=== PATIENT | male | born 1940 | race Caucasian/White ===

== ENCOUNTER 2016-12-15 11:20 | Observation (INO) | payer OTHER ==
--- NOTE | 2016-12-15 11:34 | PDOC ---
History of Present Illness <Zenon Grant - Last Filed: 12/15/16 14:03> - General History Source: Patient, Family Exam Limitations: No Limitations - History of Present Illness Initial Comments: 12/15/16 12:04 The patient is a 76 year old male with a significant past medical history of hypertension, seizures, worsening dementia, brought by ambulance to the Emergency Department s/p syncopal episode just prior to arrival. The patients reports that they were walking to an appoint with his PCP when the patient started to feel weak and rested on a wall. The patient then became pale and passed out, his family catching him and bringing him to the ground. The patient s denies head trauma. The patients is unsure how long the patient was unresponsive, but reports that the patient awoke sleepy but near baseline. The patients denies a history of heart attack or stroke in the patient. The patients admits that his last seizure was about 2 years ago, and denies any seizure activity or incontinence with todays syncopal episode. The patient admits that he is tired, but has no other complaints at this time. As per past records, the patient had A-fib in 2003. The patient denies headache, dizziness, and visual changes. Patient denies nausea, vomiting, and diarrhea. Patient denies chest pain, palpitations, and shortness of breath. Patient denies numbness or tingling to the extremities. Neuro: Dr. Leonardo PCP: Dr. Jaimee Gilmore <Siria Saucedo - Last Filed: 12/15/16 14:09> - General Chief Complaint: Syncope/Near Syncope Stated Complaint: Syncope/Near Syncope Time Seen by Provider: 12/15/16 11:32 Past History - Past Medical History Cardiac Disorders: Yes HTN: Yes Seizures: Yes - Psycho/Social/Smoking Cessation Hx Anxiety: No Suicidal Ideation: No Smoking Status: No Smoking History: Former smoker Have you smoked in the past 12 months: No Number of Cigarettes Smoked Daily: 0 Hx Alcohol Use: No Drug/Substance Use Hx: No Hx Substance Use Treatment: No <Zenon Grant - Last Filed: 12/15/16 14:03> <Siria Saucedo - Last Filed: 12/15/16 14:09> - Past Medical History Allergies/Adverse Reactions: Allergies Allergy/AdvReac Type Severity Reaction Status Date / Time No Known Allergies Allergy Verified 11/17/13 14:55 Home Medications: Ambulatory Orders Carvedilol [Coreg] 25 mg PO BID 02/15/13 Amlodipine Besylate [Norvasc -] 10 mg PO DAILY #0 tablet 02/20/13 Aspirin [ASA -] 81 mg PO DAILY #0 tab.chew 02/20/13 Hydralazine HCl 50 mg PO DAILY 11/11/13 Levetiracetam [Keppra Xr -] 750 mg PO BID 11/11/13 Multivitamins W-Iron [Multivitamins with Iron] 1 each PO DAILY 11/17/13 Review of Systems - Review of Systems Able to Perform ROS?: No (dementia) HEENTM: No: Nose Congestion, Throat Swelling Respiratory: No: Cough, Shortness of Breath Cardiac (ROS): Yes: Syncope. No: Chest Pain <Zenon Grant - Last Filed: 12/15/16 14:03> - Review of Systems Able to Perform ROS?: Yes <Siria Saucedo - Last Filed: 12/15/16 14:09> *Physical Exam - Vital Signs Last Vital Signs Temp Pulse Resp BP Pulse Ox 98.8 F 70 18 127/67 100 12/15/16 11:41 12/15/16 11:41 12/15/16 11:41 12/15/16 11:41 12/15/16 11:41 - Physical Exam Comments: 12/15/16 12:05 GENERAL: The patient is awake, alert, and fully oriented, in no acute distress. HEAD: Normal with no signs of trauma. EYES: Pupils equal, round and reactive to light, extraocular movements intact, sclera anicteric, conjunctiva clear with no pallor. ENT: Ears normal, nares patent, oropharynx clear without exudates. Moist mucous membranes. NECK: Normal range of motion, supple without lymphadenopathy, JVD, or masses. LUNGS: Breath sounds equal, clear to auscultation bilaterally. No wheeze/ crackles. HEART: Irregular rhythm, normal rate. 2/6 ejection murmur. ABDOMEN: Soft/nontender/nondistended. BS wnl. No guarding or rebound. No palpable masses. No hepatosplenomegaly. EXTREMITIES: Normal range of motion, no edema. No clubbing or cyanosis. No cords, erythema, or tenderness. NEURO: Mental status: The patient is alert and oriented x3. Cranial nerves: Cranial nerves II through XII are intact Motor: The upper extremities are 5 over 5 in all muscle groups. The lower extremities are 5 over 5 in all muscle groups. No pronator drift. Sensation: Sensation is intact to light touch throughout. Cerebellar: Ntkuvw-draokl-dval is normal in both upper extremities. Heel-knee- jean is normal in both lower extremities. Reflexes: 2+ and symmetric in the upper and lower extremities. PSYCH: Normal mood, normal affect. SKIN: Warm, Dry, normal turgor, no rashes or lesions noted. <Siria Saucedo - Last Filed: 12/15/16 14:09> Heart Score/ECG Review #1 ECG reviewed & interpreted by me at: 11:42 12/15/16 11:52 afib at 74. qtc 455. septal Q waves with sub-mm RIGO unchanged from prior ( previously seen on 11/11/13, but not 11/17/13), no acute ST changes <Zenon Grant - Last Filed: 12/15/16 14:03> ED Treatment Course - LABORATORY CBC & Chemistry Diagram: 12/15/16 12:35 12/15/16 12:35 <Zenon Grant - Last Filed: 12/15/16 14:03> - LABORATORY CBC & Chemistry Diagram: 12/15/16 12:35 12/15/16 12:35 - RADIOLOGY Radiograph Interpretation: 12/15/16 13:45 Chest XRay As reviewed by Dr. Dsehaun Martinez IMPRESSION: No acute pathology. No significant change since prior study. <Siria Saucedo - Last Filed: 12/15/16 14:09> Medical Decision Making - Medical Decision Making 12/15/16 11:59 A portion of this note was documented by scribe services under my direction. I have reviewed the details of the note, within reason, and agree with the documentation with the following case summary and management plan written by me. 76-year-old male with history of hypertension, seizures, dementia presents with syncopal episode while standing outside today. No seizure-like activity, no trauma, now returned to baseline mental status. No recent infectious or dehydration complaints, denied any headache or chest pain. Vital signs normal. Atraumatic. Irregular with normal rate Neurologically intact 76-year-old male with syncope, less consistent with seizure. Question orthostatic/vasovagal on a hot day outside, question arrhythmia. Given age and underlying heart disease, will need monitoring. Labs, urinalysis EKG, chest x-ray Admission 12/15/16 13:33 Labs are within normal limits, no leukocytosis and normal troponin. Chest x-ray normal. Patient returned to baseline, well-appearing. Question postictal previously, but still more consistent with syncope. Will proceed with telemetry admission 12/15/16 14:03 Accepted for obs tele by Dr. Rashida Cavazos. <Zenon Grant - Last Filed: 12/15/16 14:03> - Medical Decision Making 12/15/16 14:08 Dr. Cavazos was called at her office at 1:33. Awaiting call back. Dr. Cavazos was called on her cell phone at 2:00, and spoke to Dr. Grant about the patient's care. <Siria Saucedo - Last Filed: 12/15/16 14:09> *DC/Admit/Observation/Transfer - Discharge Dispostion Admit: Yes <Zenon Grant - Last Filed: 12/15/16 14:03> - Attestations Scribe Attestion: 12/15/16 12:07 Documentation prepared by Siria Saucedo, acting as medical office assistant instructor for Zenon Grant MD. <Sirai Saucedo - Last Filed: 12/15/16 14:09> Diagnosis at time of Disposition: Seizure disorder, Syncope and collapse - Discharge Dispostion Condition at time of disposition: Fair - Referrals Referrals: Jaimee Cavazos MD [Primary Care Provider] -
[2016-12-15] MEDS ORDERED: SODIUM CHLORIDE 500 ML IV STA (11:35)
[2016-12-15 11:55] VITALS: BMI 22.3
[2016-12-15 13:16] LABS: ALBUMIN 3.6 g/dl (3.4-5.0); ANION GAP 14 (8-16); BILIRUBIN,TOTAL 0.7 mg/dL (0.2-1.0); CALCIUM 8.7 mg/dL (8.5-10.1); CO2 24 mmol/L (21-32); COCKROFT - GAULT 52.91; CREATININE 1.2 mg/dL (0.7-1.3); GLUCOSE,RANDOM 106 mg/dL (74-106); MAGNESIUM 2.1 mg/dL (1.8-2.4); SGOT/AST 26 U/L (15-37); SGPT/ALT 26 U/L (12-78); TOT PROT 6.9 g/dl (6.4-8.2)
[2016-12-15 13:19] LABS: ALK PHOS 92 U/L (45-117); TROPONIN I < 0.02 ng/ml (0.00-0.05)
[2016-12-15 13:20] LABS: URINE APPEARANCE CLEAR; URINE BILIRUBIN NEGATIVE (NEGATIVE); URINE BLOOD NEGATIVE (NEGATIVE); URINE COLOR AMBER; URINE GLUCOSE (UA) NEGATIVE (NEGATIVE); URINE KETONE NEGATIVE (NEGATIVE); URINE NITRITE NEGATIVE (NEGATIVE); URINE UROBILINOGEN 2.0 E.U/dl E.U./dl (0.2-1.0)
[2016-12-15 13:24] LABS: URINE LEUK ESTERASE TRACE (NEGATIVE); URINE PROTEIN 1+ (NEGATIVE)
[2016-12-15 13:57] LABS: URINE HYALINE CAST 5 /lpf; URINE MUCUS RARE; URINE RBC 4 /hpf (0-3); URINE WBC 4 /hpf (3-5)
[2016-12-15 14:12] LABS: INR 1.2 (0.82-1.09); PROTHROMBIN TIME (PATIENT) 13.3 SEC (9.98-11.88)
--- NOTE | 2016-12-15 14:42 | EKG ---
Test Reason : Blood Pressure : / mmHG Vent. Rate : 074 BPM Atrial Rate : 066 BPM P-R Int : 000 ms QRS Dur : 130 ms QT Int : 410 ms P-R-T Axes : 000 -61 064 degrees QTc Int : 455 ms ATRIAL FIBRILLATION LEFT AXIS DEVIATION NON-SPECIFIC INTRA-VENTRICULAR CONDUCTION BLOCK CANNOT RULE OUT ANTEROSEPTAL INFARCT , AGE UNDETERMINED ABNORMAL ECG WHEN COMPARED WITH ECG OF 17-NOV-2013 15:16, QRS DURATION HAS INCREASED MINIMAL CRITERIA FOR ANTEROSEPTAL INFARCT ARE NOW PRESENT Confirmed by KRISTAN NICOLE, IZZY ([id number]) on 12/15/2016 2:42:11 PM Referred By: Confirmed By:IZZY RUSHING MD
[2016-12-15 20:32] LABS: TROPONIN I < 0.02 ng/ml (0.00-0.05)
[2016-12-15] MEDS: levETIRAcetam XR 750 MG TAB PO SCH (22:39)
[2016-12-15] MEDS: CARVEDILOL 25 MG TABLET (FP) PO SCH (22:39)
[2016-12-16 06:26] LABS: MCH 31.1 pg (25.7-33.7); MCHC 33.5 g/dl (32.0-35.9); MEAN CELL VOLUME 92.7 fl (80-96); MEAN PLT VOLUME 10.3 fl (7.5-11.1); PLATELET COUNT 143 K/MM3 (134-434); RDW 13.5 % (11.9-15.9)
[2016-12-16 06:55] LABS: TROPONIN I < 0.02 ng/ml (0.00-0.05)
[2016-12-16 07:01] LABS: ALK PHOS 99 U/L (45-117); ANION GAP 7 (8-16); BILIRUBIN,TOTAL 0.7 mg/dL (0.2-1.0); CALCIUM 9.3 mg/dL (8.5-10.1); CO2 30 mmol/L (21-32); COCKROFT - GAULT 70.55; CREATININE 0.9 mg/dL (0.7-1.3); FREE T4 1.06 ng/dl (0.76-1.16); GLUCOSE,RANDOM 92 mg/dL (74-106); SGOT/AST 29 U/L (15-37); SGPT/ALT 29 U/L (12-78); THYROID STIMULATING HORMONE 1.64 uIU/ml (0.358-3.74); TOT PROT 7.5 g/dl (6.4-8.2)
[2016-12-16] MEDS: CARVEDILOL 25 MG TABLET (FP) PO SCH ×3 (09:05→22:24)
[2016-12-16] MEDS: amLODIPine BESYLATE 10 MG TABLET (FP) PO SCH (09:05)
[2016-12-16] MEDS: hydrALAZINE HCL 50 MG TABLET (FP) PO SCH (09:05)
[2016-12-16] MEDS: ASPIRIN 81 MG CHEWABLE TABLETS PO SCH (09:05)
[2016-12-16] MEDS: levETIRAcetam XR 750 MG TAB PO SCH ×3 (09:08→22:30)
--- NOTE | 2016-12-16 11:29 | CON.CARD ---
Cardiology Consult (text) - Consultation Consultation Note: cc: syncope hpi: 76 m hx dementia, htn, hld, afib, seizures here with syncope. Hx from chart as pt has dementia and is confused. Pt offers no complaints. Per charts he was at pmd office yesterday and felt weak and started to lean on wall. He became pale and then collapsed and was caught and brought to floor. Regained conscience and felt well, brought to er for further eval. pmh: per hpi psh: nc social: ex tob fam: unknown ros: unable to obtain 2/2 dementia meds: Home Medications Medication Instructions Recorded Carvedilol [Coreg] 25 mg PO BID 02/15/13 Amlodipine Besylate [Norvasc -] 10 mg PO DAILY #0 tablet 02/20/13 Aspirin [ASA -] 81 mg PO DAILY #0 tab.chew 02/20/13 Hydralazine HCl 50 mg PO DAILY 11/11/13 Levetiracetam [Keppra Xr -] 750 mg PO BID 11/11/13 Multivitamins W-Iron 1 each PO DAILY 11/17/13 [Multivitamins with Iron] Donepezil HCl [Aricept] 10 mg PO DAILY 12/15/16 Galantamine HBr [Razadyne ER] 8 mg PO DAILY 12/15/16 pe: Vital Signs Period Temp Pulse Resp BP Sys/Mercer Pulse Ox Last 24 Hr 98.0 F-98.8 F 62-84 17-20 110-153/58-80 96-100 nad no jvd irreg s1s2 no mrg cta bl nl eff awake alert confused no jaundice diaphoresis pos dp pt, no carotid bruits no le e/c/c abd nt nd pos bs Laboratory Last Values WBC 6.0 K/mm3 (4.0-10.0) 12/16/16 05:51 RBC 4.88 M/mm3 (4.00-5.60) 12/16/16 05:51 Hgb 15.2 GM/dL (11.7-16.9) 12/16/16 05:51 Hct 45.2 % (35.4-49) 12/16/16 05:51 MCV 92.7 fl (80-96) 12/16/16 05:51 MCHC 33.5 g/dl (32.0-35.9) 12/16/16 05:51 RDW 13.5 % (11.9-15.9) 12/16/16 05:51 Plt Count 143 K/MM3 (134-434) D 12/16/16 05:51 MPV 10.3 fl (7.5-11.1) 12/16/16 05:51 Neutrophils % 79.4 % (42.8-82.8) 12/15/16 12:35 Lymphocytes % 10.7 % (8-40) D 12/15/16 12:35 Monocytes % 7.8 % (3.8-10.2) 12/15/16 12:35 Eosinophils % 1.5 % (0-4.5) 12/15/16 12:35 Basophils % 0.6 % (0-2.0) 12/15/16 12:35 INR 1.20 (0.82-1.09) H 12/15/16 12:35 Sodium 141 mmol/L (136-145) 12/16/16 05:51 Potassium 4.1 mmol/L (3.5-5.1) 12/16/16 05:51 Chloride 104 mmol/L (98-107) 12/16/16 05:51 Carbon Dioxide 30 mmol/L (21-32) D 12/16/16 05:51 Anion Gap 7 (8-16) L 12/16/16 05:51 BUN 17 mg/dL (7-18) 12/16/16 05:51 Creatinine 0.9 mg/dL (0.7-1.3) D 12/16/16 05:51 Creat Clearance w eGFR > 60 (>60) 12/16/16 05:51 Random Glucose 92 mg/dL (74-106) 12/16/16 05:51 Calcium 9.3 mg/dL (8.5-10.1) 12/16/16 05:51 Magnesium 2.1 mg/dL (1.8-2.4) 12/15/16 12:35 Total Bilirubin 0.7 mg/dL (0.2-1.0) 12/16/16 05:51 AST 29 U/L (15-37) 12/16/16 05:51 ALT 29 U/L (12-78) 12/16/16 05:51 Alkaline Phosphatase 99 U/L (45-117) 12/16/16 05:51 Creatine Kinase 80 IU/L (39-308) 12/16/16 05:51 Troponin I < 0.02 ng/ml (0.00-0.05) 12/16/16 05:51 Total Protein 7.5 g/dl (6.4-8.2) 12/16/16 05:51 Albumin 4.0 g/dl (3.4-5.0) 12/16/16 05:51 TSH 1.64 uIU/ml (0.358-3.74) 12/16/16 05:51 Free T4 1.06 ng/dl (0.76-1.16) 12/16/16 05:51 Urine Color Mimi 12/15/16 13:10 Urine Appearance Clear 12/15/16 13:10 Urine pH 5.0 (5.0-8.0) 12/15/16 13:10 Ur Specific Brandon 1.020 (1.005-1.025) 12/15/16 13:10 Urine Protein 1+ (NEGATIVE) H 12/15/16 13:10 Urine Glucose (UA) Negative (NEGATIVE) 12/15/16 13:10 Urine Ketones Negative (NEGATIVE) 12/15/16 13:10 Urine Blood Negative (NEGATIVE) 12/15/16 13:10 Urine Nitrite Negative (NEGATIVE) 12/15/16 13:10 Urine Bilirubin Negative (NEGATIVE) 12/15/16 13:10 Urine Urobilinogen 2.0 e.u/dl E.U./dl (0.2-1.0) 12/15/16 13:10 Ur Leukocyte Esterase Trace (NEGATIVE) H 12/15/16 13:10 Urine RBC 4 /hpf (0-3) 12/15/16 13:10 Urine WBC 4 /hpf (3-5) 12/15/16 13:10 Ur Epithelial Cells Rare /hpf (FEW) 12/15/16 13:10 Hyaline Casts 5 /lpf 12/15/16 13:10 Urine Mucus Rare 12/15/16 13:10 Blood Type A NEGATIVE 12/15/16 11:35 Antibody Screen Negative 12/15/16 11:35 ecg 12/15/16: afib, vr 74, nl qtc, no ischemic changes cxr: clear lungs mibi 01/2013: no ischemia echo 01/2013: nl lvef, mod conc lvh, mild lve, nl rv, mild pr, mild-mod ar, mild -mod mr, mild tr, rvsp 30-40, mild lae, mild ao root dil tele: afib, rate controlled a/p: 76 m hx dementia, htn, hld, afib, seizures here with syncope. syncope: -possibly vasovagal based on description -tele shows no etiology -no signs acs or chf, ce's neg x3 -will check echo, carotids, orthostatic vs's-->if unremarkable then ok for dc with outpt f/u and possible event monitor if pt can cooperate (dementia) htn: -cont home meds hld: -diet control afib: -rate controlled on bb -not on ac 2/2 dementia/falls, cont asa
--- NOTE | 2016-12-16 11:47 | HP ---
Admitting History and Physical - Primary Care Physician PCP: Parminder Christianson - Admission Chief Complaint: syncope History of Present Illness: ER HISTORY - History of Present Illness Initial Comments: 12/15/16 12:04 The patient is a 76 year old male with a significant past medical history of hypertension, seizures, worsening dementia, brought by ambulance to the Emergency Department s/p syncopal episode just prior to arrival. The patients reports that they were walking to an appoint with his PCP when the patient started to feel weak and rested on a wall. The patient then became pale and passed out, his family catching him and bringing him to the ground. The patient s denies head trauma. The patients is unsure how long the patient was unresponsive, but reports that the patient awoke sleepy but near baseline. The patients denies a history of heart attack or stroke in the patient. The patients admits that his last seizure was about 2 years ago, and denies any seizure activity or incontinence with todays syncopal episode. The patient admits that he is tired, but has no other complaints at this time. As per past records, the patient had A-fib in 2003. The patient denies headache, dizziness, and visual changes. Patient denies nausea, vomiting, and diarrhea. Patient denies chest pain, palpitations, and shortness of breath. Patient denies numbness or tingling to the extremities. Neuro: Dr. Leonardo PCP: Dr. Jaimee Gilmore Pt examined in tele Pt was on his way to the office for a check up ad to get some forms filled out for [employer] He has unsteady gait and is weak. 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 Cardiovascular: Yes: AFIB (not on ac DUE TO FALLS HISTORY), HTN - Smoking History Smoking history: Former smoker Have you smoked in the past 12 months: No Aproximately how many cigarettes per day: 0 - Alcohol/Substance Use Hx Alcohol Use: No Home Medications - Allergies Allergies/Adverse Reactions: Allergies Allergy/AdvReac Type Severity Reaction Status Date / Time No Known Allergies Allergy Verified 11/17/13 14:55 - Home Medications Home Medications: Ambulatory Orders Carvedilol [Coreg] 25 mg PO BID 02/15/13 Amlodipine Besylate [Norvasc -] 10 mg PO DAILY #0 tablet 02/20/13 Aspirin [ASA -] 81 mg PO DAILY #0 tab.chew 02/20/13 Hydralazine HCl 50 mg PO DAILY 11/11/13 Levetiracetam [Keppra Xr -] 750 mg PO BID 11/11/13 Multivitamins W-Iron [Multivitamins with Iron] 1 each PO DAILY 11/17/13 Donepezil HCl [Aricept] 10 mg PO DAILY 12/15/16 Galantamine HBr [Razadyne ER] 8 mg PO DAILY 12/15/16 Review of Systems - Review of Systems Constitutional: reports: Weakness. denies: Chills, Fever Cardiovascular: denies: Chest Pain, Palpitations, Shortness of Breath Respiratory: denies: Cough Physical Examination Vital Signs: Vital Signs Temperature 98.1 F 12/16/16 07:43 Pulse Rate 77 12/16/16 07:43 Respiratory Rate 18 12/16/16 08:00 Blood Pressure 125/69 12/16/16 07:43 O2 Sat by Pulse Oximetry (%) 98 12/16/16 08:00 Constitutional: Yes: No Distress, Calm Cardiovascular: Yes: Regular Rate and Rhythm Respiratory: Yes: Diminished Edema: No Psychiatric: Yes: Alert, Other (confused) Labs: CBC, BMP 12/16/16 05:51 12/16/16 05:51 Imaging - Results Chest X-ray: Image Reviewed (clear) EKG: Image Reviewed (Afib) Problem List - Problems (1) Syncope and collapse Code(s): R55 - SYNCOPE AND COLLAPSE (2) Afib Code(s): I48.91 - UNSPECIFIED ATRIAL FIBRILLATION (3) HTN (hypertension) Code(s): I10 - ESSENTIAL (PRIMARY) HYPERTENSION (4) Unsteady gait Code(s): R26.81 - UNSTEADINESS ON FEET Assessment/Plan PLAN -- pt is not on AC due to frequent falls -- no orthostasis -- continue with meds -- check carotid doppler and echo -- unlikely to be seizures -- PT eval telemetry monitoring
--- NOTE | 2016-12-17 08:01 | PN ---
Progress Note (short form) - Note Progress Note: SUBJECTIVE: Patient seen and examined. Chart reviewed. Comfortable. No complaints. at bedside. Denies chest pain or shortness of breath. OBJECTIVE: Vital Signs 12/17/16 12/17/16 12/17/16 02:08 05:33 08:31 Temperature 98.7 F 98 F 98.1 F Pulse Rate 86 103 H 97 H Respiratory 20 18 20 Rate Blood Pressure 109/64 155/106 142/96 Intake & Output 12/16/16 12/17/16 12/17/16 23:59 07:59 15:59 Intake Total 400 100 Balance 400 100 Intake: Oral 400 100 Other: Voiding Method Urinal Active Medications Amlodipine Besylate (Norvasc -) 10 mg PO DAILY [facility] Last Admin: 12/17/16 09:12 Dose: 10 mg Aspirin (Asa -) 81 mg PO DAILY [facility] Last Admin: 12/17/16 09:12 Dose: 81 mg Carvedilol (Coreg -) 25 mg PO BID [facility] Last Admin: 12/17/16 09:12 Dose: 25 mg Hydralazine HCl (Apresoline -) 50 mg PO DAILY [facility] Last Admin: 12/17/16 09:12 Dose: 50 mg Levetiracetam (Keppra Xr -) 750 mg PO BID [facility] Last Admin: 12/17/16 09:12 Dose: 750 mg CBC, BMP 12/16/16 05:51 12/16/16 05:51 Laboratory Results - last 24 hr 12/15/16 12/16/16 12:35 05:51 WBC Cancelled 6.0 Corrected WBC (auto) Cancelled RBC Cancelled 4.88 Hgb Cancelled 15.2 Hct Cancelled 45.2 MCV Cancelled 92.7 MCHC Cancelled 33.5 RDW Cancelled 13.5 Plt Count Cancelled 143 MPV Cancelled 10.3 Neutrophils % Cancelled Lymphocytes % Cancelled Monocytes % Cancelled Eosinophils % Cancelled Basophils % Cancelled Differential Comment Cancelled Smudge Cells Cancelled Platelet Estimate Cancelled Platelet Comment Cancelled RBC Morphology Cancelled PHYSICAL EXAMINATION: Constitutional: Yes: No Distress, Calm Cardiovascular: Yes: Regular Rate and Rhythm Respiratory: Yes: CTA bilaterally Edema: No Psychiatric: Yes: Alert, Other (confused) Problem List - Problems (1) Syncope and collapse Code(s): R55 - SYNCOPE AND COLLAPSE (2) Afib Code(s): I48.91 - UNSPECIFIED ATRIAL FIBRILLATION (3) HTN (hypertension) Code(s): I10 - ESSENTIAL (PRIMARY) HYPERTENSION (4) Unsteady gait Code(s): R26.81 - UNSTEADINESS ON FEET ASSESSMENT & PLAN: - Clinically stable. - Workup negative. - Not a anticoagulant candidate due to dementia and frequent falls. - Will discharge home today. - Follow up in office in two weeks. Documentation prepared by Zaina Dewitt, acting as a medical assembly for Parminder Christianson MD.
[2016-12-17 08:32] VITALS: BP 142/96; PULSE 97; TEMP 98.1
[2016-12-17] MEDS ORDERED: PT OWN MED DRAWER 7, Y5N ONE (09:08)
[2016-12-17] MEDS: amLODIPine BESYLATE 10 MG TABLET (FP) PO SCH (09:12)
[2016-12-17] MEDS: ASPIRIN 81 MG CHEWABLE TABLETS PO SCH (09:12)
[2016-12-17] MEDS: CARVEDILOL 25 MG TABLET (FP) PO SCH (09:12)
[2016-12-17] MEDS: levETIRAcetam XR 750 MG TAB PO SCH (09:12)
[2016-12-17] MEDS: hydrALAZINE HCL 50 MG TABLET (FP) PO SCH (09:12)
--- NOTE | 2016-12-17 11:38 | DS ---
Physical Examination Vital Signs: Vital Signs Temperature 98.1 F 12/17/16 08:31 Pulse Rate 97 H 12/17/16 08:31 Respiratory Rate 20 12/17/16 08:31 Blood Pressure 142/96 12/17/16 08:31 O2 Sat by Pulse Oximetry (%) 96 12/17/16 08:00 Labs: CBC, BMP 12/16/16 05:51 12/16/16 05:51 <Parminder Christianson - Last Filed: 12/17/16 11:38> Vital Signs: Vital Signs Temperature 98.1 F 12/17/16 08:31 Pulse Rate 97 H 12/17/16 08:31 Respiratory Rate 20 12/17/16 08:31 Blood Pressure 142/96 12/17/16 08:31 O2 Sat by Pulse Oximetry (%) 96 12/17/16 08:00 Findings/Remarks: See today's progress note. Labs: CBC, BMP 12/16/16 05:51 12/16/16 05:51 <Zaina Dewitt - Last Filed: 12/17/16 11:51> Discharge Summary Reason For Visit: SYNCOPE AND COLLAPSE Current Active Problems Seizure disorder (Acute) Syncope and collapse (Acute) Unsteady gait (Acute) - Home Medications Comprehensive Discharge Medication List: Ambulatory Orders Carvedilol [Coreg] 25 mg PO BID 02/15/13 Amlodipine Besylate [Norvasc -] 10 mg PO DAILY #0 tablet 02/20/13 Aspirin [ASA -] 81 mg PO DAILY #0 tab.chew 02/20/13 Hydralazine HCl 50 mg PO DAILY 11/11/13 Levetiracetam [Keppra Xr -] 750 mg PO BID 11/11/13 Multivitamins W-Iron [Multivitamins with Iron] 1 each PO DAILY 11/17/13 Donepezil HCl [Aricept] 10 mg PO DAILY 12/15/16 Galantamine HBr [Razadyne ER] 8 mg PO DAILY 12/15/16 <Parminder Christianson - Last Filed: 12/17/16 11:38> Current Active Problems Seizure disorder (Acute) Syncope and collapse (Acute) Unsteady gait (Acute) Hospital Course: The patient is a 76 year old male with a significant past medical history of hypertension, seizures, worsening dementia, brought by ambulance to the Emergency Department s/p syncopal episode. Workup negative. Discharge home today with VNS. Family requesting home health aide. Discussed with Securities Dealer. She is arranging for same. Will follow in office. Medications reconciled Discussed with nursing staff also. Time spent documenting, examining and coordinating care-- 30 minutes Documentation prepared by Zaina Dewitt, acting as a medical center director for Parminder Christianson MD. - Home Medications Comprehensive Discharge Medication List: Ambulatory Orders Carvedilol [Coreg] 25 mg PO BID 02/15/13 Amlodipine Besylate [Norvasc -] 10 mg PO DAILY #0 tablet 02/20/13 Aspirin [ASA -] 81 mg PO DAILY #0 tab.chew 02/20/13 Hydralazine HCl 50 mg PO DAILY 11/11/13 Levetiracetam [Keppra Xr -] 750 mg PO BID 11/11/13 Multivitamins W-Iron [Multivitamins with Iron] 1 each PO DAILY 11/17/13 Donepezil HCl [Aricept] 10 mg PO DAILY 12/15/16 Galantamine HBr [Razadyne ER] 8 mg PO DAILY 12/15/16 <Zaina Dewitt - Last Filed: 12/17/16 11:51> Condition: Fair - Instructions Referrals: Jaimee Cavazos MD [Primary Care Provider] -
--- NOTE | 2016-12-17 12:14 | PN ---
Progress Note (short form) - Note Progress Note: s: no cp sob palps dizzy; confused o: Vital Signs Period Temp Pulse Resp BP Sys/Mercer Pulse Ox Last 24 Hr 98 F-98.7 F 80-103 18-20 109-168/58-106 96-98 nad no jvd irreg s1s2 no mrg cta bl nl eff awake alert confused no jaundice diaphoresis no le e/c/c abd nt nd pos bs Current Medications Generic Name Dose Route Start Last Admin Trade Name Ladarius PRN Reason Stop Dose Admin Amlodipine Besylate 10 mg 12/16/16 10:00 12/17/16 09:12 Norvasc - PO 10 mg DAILY MANDO Administration Aspirin 81 mg 12/16/16 10:00 12/17/16 09:12 Asa - PO 81 mg DAILY MANDO Administration Carvedilol 25 mg 12/15/16 22:00 12/17/16 09:12 Coreg - PO 25 mg BID MANDO Administration Hydralazine HCl 50 mg 12/16/16 10:00 12/17/16 09:12 Apresoline - PO 50 mg DAILY MANDO Administration Levetiracetam 750 mg 12/15/16 22:00 12/17/16 09:12 Keppra Xr - PO 750 mg BID MANDO Administration CBC, BMP 12/16/16 05:51 12/16/16 05:51 ecg 12/15/16: afib, vr 74, nl qtc, no ischemic changes cxr: clear lungs mibi 01/2013: no ischemia echo 01/2013: nl lvef, mod conc lvh, mild lve, nl rv, mild pr, mild-mod ar, mild -mod mr, mild tr, rvsp 30-40, mild lae, mild ao root dil echo 11/2016: mild lve, nl lv/rv, mild lae, mild mr, mild tr, mild-mod ar, mild ao root dil carotids 11/2016: minimal dz, no sig stenosis tele: afib, rate controlled a/p: 76 m hx dementia, htn, hld, afib, seizures here with syncope. syncope: -possibly vasovagal based on description -tele shows no etiology -no signs acs or chf, ce's neg x3 -echo, carotids, orthostatics all unremarkable -ok for dc from cardiac pov with outpt f/u and possible event monitor if pt can cooperate (dementia) htn: -cont home meds hld: -diet control afib: -rate controlled on bb -not on ac 2/2 dementia/falls, cont asa
== END 2016-12-17 14:51 | disposition home health service (06) ==
LOC: JER 11:20 → JERBED 14:04 → J4W 17:40
PROVIDERS: ADMIT Internal Medicine; ATTEND Internal Medicine
PROC: 3E0337Z Introduction of Electrolytic and Water Balance Substance into Peripheral Vein, Percutaneous Approach (ICD-10-PCS; principal; 2016-12-15)
DX: R55 Syncope and collapse (principal); G40.909 Epilepsy, unspecified, not intractable, without status epilepticus; I48.91 Unspecified atrial fibrillation; I10 Essential (primary) hypertension; F03.90 Unspecified dementia, unspecified severity, without behavioral disturbance, psychotic disturbance, mood disturbance, and anxiety; Z87.891 Personal history of nicotine dependence; Z79.82 Long term (current) use of aspirin; R26.81 Unsteadiness on feet
CPT/HCPCS: 36415; 71010-TC; 80053; 81003; 81015; 82550; 83735; 84439; 84443; 84484; 85025; 85027; 85610; 86850; 86900; 86901; 93005; 93010; 93306-TC; 93880-TC; 97116-GP; 97161-GP; 99285-25; G0378

== ENCOUNTER 2018-12-19 16:20 | Inpatient (IN) | payer MEDICARE, OTHER | END 2018-12-21 22:40 | disposition home or self-care (01) | LOC: J4S 16:20 ==

== ENCOUNTER 2020-06-04 09:05 | Inpatient (IN) | payer OTHER ==
[2020-06-04 09:35] VITALS: BMI 27.3
[2020-06-04] MEDS ORDERED: ACETAMINOPHEN 1000 MG/100 ML VIAL (NON FORMULARY) IVPB ONE (10:15)
[2020-06-04 10:55] LABS: HEMATOCRIT 50.3 % (35.4-49); HEMOGLOBIN 16.3 GM/dL (11.7-16.9); MCH 30.6 pg (25.7-33.7); MCHC 32.5 g/dl (32.0-35.9); MEAN CELL VOLUME 94.3 fl (80-96); MEAN PLT VOLUME 11.6 fl (7.5-11.1); PLATELET COUNT 98 K/MM3 (134-434); RBC 5.33 M/mm3 (4.00-5.60); RDW 13.9 % (11.9-15.9); WHITE BLOOD COUNT 8.8 K/mm3 (4.0-10.0)
[2020-06-04 11:17] LABS: INR 1.31 (0.83-1.09); PROTHROMBIN TIME (PATIENT) 15.7 SEC (9.7-13.0)
[2020-06-04 11:19] LABS: POTASSIUM 4.3 mmol/L (3.5-5.1)
[2020-06-04 11:20] LABS: ACTIVATED PTT 38.1 SECONDS (25.2-36.5)
[2020-06-04 11:21] LABS: ALBUMIN 3.3 g/dl (3.4-5.0); CALCIUM 9.5 mg/dL (8.5-10.1)
[2020-06-04 11:22] LABS: BLOOD UREA NITROGEN 14.4 mg/dL (7-18)
[2020-06-04 11:26] LABS: BILIRUBIN,TOTAL 2.7 mg/dL (0.2-1); TOT PROT 7.3 g/dl (6.4-8.2)
[2020-06-04 13:02] LABS: EPI CELLS 17 /uL (0-25.1); HYALINE CASTS 4 /uL (0-3.1); PH,URINE 5.5 (5.0-8.0); URINE APPEARANCE CLOUDY; URINE BILIRUBIN 2+ (NEGATIVE); URINE COLOR ORANGE; URINE GLUCOSE (UA) NEGATIVE (NEGATIVE); URINE KETONE NEGATIVE (NEGATIVE); URINE LEUK ESTERASE NEGATIVE (NEGATIVE); URINE NITRITE POSITIVE (NEGATIVE); URINE PROTEIN 3+ (NEGATIVE); URINE RBC 13 /uL (0-23.9); URINE WBC 13 /uL (0-25.8)
[2020-06-04] MEDS ORDERED: SODIUM CHLORIDE 500 ML IV STA (13:14)
[2020-06-04 14:18] LABS: ANISOCYTOSIS 0; MACROCYTOSIS 0; PLATELET ESTIMATE DECREASED
[2020-06-04] MEDS ORDERED: PIPERACILLIN/TAZOB 4.5 GM 4.5 GM/100 ML BAG IVPB ONE ×2 (14:41→15:41)
[2020-06-04 15:06] LABS: URINE BACTERIA 6.6 /uL (0-1359)
[2020-06-04] MEDS ORDERED: levETIRAcetam 500 MG/5 ML INJECTION VIAL IVPB ONE (16:51)
[2020-06-04] MEDS ORDERED: ACETAMINOPHEN 1000 MG/100 ML VIAL (NON FORMULARY) IVPB PRN (16:59)
[2020-06-04] MEDS ORDERED: ACETAMINOPHEN INJECTION 100 ML IVPB ONE (17:15)
[2020-06-04] MEDS: DEXTROSE 5%-NORMAL SALINE 1,000 ML IV SCH (17:27)
[2020-06-04] MEDS: CARVEDILOL 25 MG TABLET (FP) PO SCH (22:21)
[2020-06-04] MEDS: levETIRAcetam XR 750 MG TAB PO SCH (22:56)
[2020-06-05 06:44] LABS: BASO % 0.5 % (0-2.0); EOS % 0.5 % (0-4.5); HEMATOCRIT 42.2 % (35.4-49); HEMOGLOBIN 13.8 GM/dL (11.7-16.9); MCH 30.8 pg (25.7-33.7); MCHC 32.6 g/dl (32.0-35.9); MEAN CELL VOLUME 94.3 fl (80-96); MEAN PLT VOLUME 11.4 fl (7.5-11.1); MONO % 6.7 % (3.8-10.2); NEUT % 82.3 % (42.8-82.8); PLATELET COUNT 83 K/MM3 (134-434); RBC 4.47 M/mm3 (4.00-5.60); RDW 13.8 % (11.9-15.9)
[2020-06-05 07:10] LABS: POTASSIUM 3.8 mmol/L (3.5-5.1)
[2020-06-05 07:26] LABS: ALBUMIN 2.6 g/dl (3.4-5.0)
[2020-06-05 07:29] LABS: CREATININE 0.8 mg/dL (0.55-1.3)
[2020-06-05 07:31] LABS: TOT PROT 5.9 g/dl (6.4-8.2)
[2020-06-05 07:32] LABS: BILIRUBIN,TOTAL 1.7 mg/dL (0.2-1)
[2020-06-05] MEDS ORDERED: PT OWN MED DRAWER 7, Y5N ONE ×3 (09:36→22:05)
[2020-06-05] MEDS ORDERED: DEXTROSE 5%-WATER - 50 ML IVPB ONE (09:36)
[2020-06-05] MEDS ORDERED: cefTRIAXone SODIUM 1 GM VIAL ONE (09:36)
[2020-06-05] MEDS: CEFTRIAXONE 1 GM in DEXTROSE 5%-WATER - 50 ML IVPB SCH (09:50)
[2020-06-05] MEDS: levETIRAcetam XR 750 MG TAB PO SCH ×2 (09:50→22:56)
[2020-06-05] MEDS: amLODIPine BESYLATE 10 MG TABLET (FP) PO SCH (09:50)
[2020-06-05] MEDS: CARVEDILOL 25 MG TABLET (FP) PO SCH ×2 (09:50→22:56)
[2020-06-05] MEDS ORDERED: PANTOPRAZOLE SODIUM 40 MG VIAL IVPUSH SCH (10:00)
[2020-06-05] MEDS: DEXTROSE 5%-NORMAL SALINE 1,000 ML IV SCH (22:57)
[2020-06-06] MEDS ORDERED: LORazepam 2 MG/ML SDV VIAL IM ONE (01:29)
[2020-06-06 08:05] LABS: INR 1.3 (0.83-1.09); PROTHROMBIN TIME (PATIENT) 15.9 SEC (9.7-13.0)
[2020-06-06 08:13] LABS: BASO % 0.5 % (0-2.0); EOS % 0.6 % (0-4.5); HEMATOCRIT 41.5 % (35.4-49); HEMOGLOBIN 13.6 GM/dL (11.7-16.9); LYMPH % 10.5 % (8-40); MCH 30.8 pg (25.7-33.7); MCHC 32.8 g/dl (32.0-35.9); MEAN CELL VOLUME 93.9 fl (80-96); MEAN PLT VOLUME 11.2 fl (7.5-11.1); MONO % 8.8 % (3.8-10.2); NEUT % 79.6 % (42.8-82.8); PLATELET COUNT 98 K/MM3 (134-434); RBC 4.41 M/mm3 (4.00-5.60); RDW 14.3 % (11.9-15.9); WHITE BLOOD COUNT 6.9 K/mm3 (4.0-10.0)
[2020-06-06 08:17] LABS: POTASSIUM 3.7 mmol/L (3.5-5.1)
[2020-06-06 08:20] LABS: CALCIUM 9.3 mg/dL (8.5-10.1)
[2020-06-06 08:21] LABS: ALBUMIN 2.8 g/dl (3.4-5.0); BLOOD UREA NITROGEN 22.4 mg/dL (7-18)
[2020-06-06 08:24] LABS: CREATININE 0.9 mg/dL (0.55-1.3)
[2020-06-06 08:25] LABS: BILIRUBIN,TOTAL 1.4 mg/dL (0.2-1)
[2020-06-06] MEDS ORDERED: cefTRIAXone SODIUM 1 GM VIAL ONE (11:26)
[2020-06-06] MEDS ORDERED: PT OWN MED DRAWER 7, Y5N ONE ×2 (11:26→21:25)
[2020-06-06] MEDS ORDERED: DEXTROSE 5%-WATER - 50 ML IVPB ONE (11:26)
[2020-06-06] MEDS: CEFTRIAXONE 1 GM in DEXTROSE 5%-WATER - 50 ML IVPB SCH (11:37)
[2020-06-06] MEDS: amLODIPine BESYLATE 10 MG TABLET (FP) PO SCH (11:40)
[2020-06-06] MEDS: CARVEDILOL 25 MG TABLET (FP) PO SCH ×2 (11:40→22:53)
[2020-06-06] MEDS: levETIRAcetam XR 750 MG TAB PO SCH ×2 (11:41→22:53)
[2020-06-06] MEDS: DEXTROSE 5%-NORMAL SALINE 1,000 ML IV SCH (16:14)
[2020-06-06] MEDS: LORazepam 2 MG/ML SDV VIAL IM PRN (19:02)
[2020-06-07] MEDS ORDERED: DEXTROSE 5%-WATER - 50 ML IVPB ONE (09:24)
[2020-06-07] MEDS ORDERED: cefTRIAXone SODIUM 1 GM VIAL ONE (09:24)
[2020-06-07] MEDS: levETIRAcetam XR 750 MG TAB PO SCH ×2 (09:25→22:09)
[2020-06-07] MEDS: CARVEDILOL 25 MG TABLET (FP) PO SCH ×2 (09:25→22:09)
[2020-06-07] MEDS: amLODIPine BESYLATE 10 MG TABLET (FP) PO SCH (09:25)
[2020-06-07] MEDS: CEFTRIAXONE 1 GM in DEXTROSE 5%-WATER - 50 ML IVPB SCH (09:29)
[2020-06-07] MEDS: DEXTROSE 5%-NORMAL SALINE 1,000 ML IV SCH ×2 (14:58→17:10)
[2020-06-07] MEDS ORDERED: PT OWN MED DRAWER 7, Y5N ONE (21:22)
[2020-06-07] MEDS: LORazepam 2 MG/ML SDV VIAL IM PRN (22:55)
[2020-06-08] MEDS ORDERED: cefTRIAXone SODIUM 1 GM VIAL ONE (09:22)
[2020-06-08] MEDS ORDERED: PT OWN MED DRAWER 7, Y5N ONE ×3 (09:22→20:56)
[2020-06-08] MEDS ORDERED: DEXTROSE 5%-WATER - 50 ML IVPB ONE (09:23)
[2020-06-08] MEDS: CARVEDILOL 25 MG TABLET (FP) PO SCH ×2 (09:30→21:42)
[2020-06-08] MEDS: CEFTRIAXONE 1 GM in DEXTROSE 5%-WATER - 50 ML IVPB SCH (09:30)
[2020-06-08] MEDS: amLODIPine BESYLATE 10 MG TABLET (FP) PO SCH (09:30)
[2020-06-08] MEDS: levETIRAcetam XR 750 MG TAB PO SCH ×2 (09:31→21:42)
[2020-06-08] MEDS: DEXTROSE 5%-NORMAL SALINE 1,000 ML IV SCH (17:46)
[2020-06-09 06:34] LABS: EOS % 2.2 % (0-4.5); HEMATOCRIT 40.5 % (35.4-49); HEMOGLOBIN 13.4 GM/dL (11.7-16.9); LYMPH % 13.9 % (8-40); MCH 30.8 pg (25.7-33.7); MCHC 33.1 g/dl (32.0-35.9); MEAN PLT VOLUME 11.1 fl (7.5-11.1); MONO % 13.3 % (3.8-10.2); NEUT % 69.6 % (42.8-82.8); PLATELET COUNT 106 K/MM3 (134-434); RBC 4.36 M/mm3 (4.00-5.60); RDW 13.8 % (11.9-15.9); WHITE BLOOD COUNT 5.5 K/mm3 (4.0-10.0)
[2020-06-09 07:04] LABS: POTASSIUM 3.2 mmol/L (3.5-5.1)
[2020-06-09 07:08] LABS: ALBUMIN 2.5 g/dl (3.4-5.0); BLOOD UREA NITROGEN 6.1 mg/dL (7-18); CALCIUM 8.3 mg/dL (8.5-10.1)
[2020-06-09 07:10] LABS: CREATININE 0.6 mg/dL (0.55-1.3)
[2020-06-09 07:12] LABS: BILIRUBIN,TOTAL 0.9 mg/dL (0.2-1); TOT PROT 5.5 g/dl (6.4-8.2)
[2020-06-09] MEDS ORDERED: DEXTROSE 5%-WATER - 50 ML IVPB ONE (10:13)
[2020-06-09] MEDS ORDERED: cefTRIAXone SODIUM 1 GM VIAL ONE (10:13)
[2020-06-09] MEDS: amLODIPine BESYLATE 10 MG TABLET (FP) PO SCH (10:17)
[2020-06-09] MEDS: CARVEDILOL 25 MG TABLET (FP) PO SCH ×2 (10:17→22:38)
[2020-06-09] MEDS: CEFTRIAXONE 1 GM in DEXTROSE 5%-WATER - 50 ML IVPB SCH (10:18)
[2020-06-09] MEDS: DEXTROSE 5%-NORMAL SALINE 1,000 ML IV SCH ×2 (10:27→17:23)
[2020-06-09] MEDS: levETIRAcetam XR 750 MG TAB PO SCH ×2 (11:38→22:39)
[2020-06-09] MEDS ORDERED: POTASSIUM CHLORIDE TABS 20 MEQ TABLET.ER (FP) PO ONE (12:00)
[2020-06-09] MEDS ORDERED: PT OWN MED DRAWER 7, Y5N ONE (21:58)
[2020-06-10] MEDS: DEXTROSE 5%-NORMAL SALINE 1,000 ML IV SCH (01:40)
[2020-06-10] MEDS ORDERED: cefTRIAXone SODIUM 1 GM VIAL ONE (09:23)
[2020-06-10] MEDS ORDERED: DEXTROSE 5%-WATER - 50 ML IVPB ONE (09:23)
[2020-06-10] MEDS ORDERED: PT OWN MED DRAWER 7, Y5N ONE (09:24)
[2020-06-10] MEDS: amLODIPine BESYLATE 10 MG TABLET (FP) PO SCH (09:26)
[2020-06-10] MEDS: CARVEDILOL 25 MG TABLET (FP) PO SCH ×3 (09:26→23:25)
[2020-06-10] MEDS: levETIRAcetam XR 750 MG TAB PO SCH ×3 (09:26→23:28)
[2020-06-10] MEDS: CEFTRIAXONE 1 GM in DEXTROSE 5%-WATER - 50 ML IVPB SCH (11:07)
[2020-06-10] MEDS ORDERED: DEXTROSE 5%-NORMAL SALINE 1,000 ML IV SCH (16:45)
[2020-06-10] MEDS ORDERED: ROCURONIUM BROMIDE 50 MG/5 ML SYRINGE ONE (18:08)
[2020-06-10] MEDS ORDERED: ceFAZolin SODIUM 1 GM VIAL IVPB ONE (18:23)
[2020-06-10] MEDS ORDERED: ONDANSETRON 4 MG/2 ML VIAL IVPUSH PRN ×2 (18:23→21:44)
[2020-06-10] MEDS ORDERED: ceFAZolin SODIUM 1 GM VIAL ONE (18:27)
[2020-06-10] MEDS ORDERED: SODIUM CHLORIDE 0.9% P/F 10 ML VIAL IJ ONE (18:27)
[2020-06-10] MEDS ORDERED: LACTATED RINGERS SOLUTION 1,000 ML IV SCH (18:30)
[2020-06-10] MEDS ORDERED: BUPIVACAINE LIPOSOME/PF (EXPAREL) 266 MG/20 ML VIAL ONE (18:33)
[2020-06-10] MEDS ORDERED: BUPIVACAINE HCL/PF 0.5% (5 MG/ML) 30 ML VIAL IJ ONE ×2 (18:43)
[2020-06-10] MEDS ORDERED: BUPIVACAINE LIPOSOME/PF (EXPAREL) 266 MG/20 ML VIAL NR ONE ×2 (18:43)
[2020-06-10] MEDS ORDERED: PROPOFOL 20 ML ONE (21:04)
[2020-06-10] MEDS ORDERED: NEOSTIGMINE METHYLSULFATE 0.5 MG/ML - 10 ML MDV ONE (21:26)
[2020-06-10] MEDS ORDERED: ACETAMINOPHEN 1000 MG/100 ML VIAL (NON FORMULARY) IVPB PRN ×2 (21:41→21:50)
[2020-06-10] MEDS ORDERED: morphine CARPU-JECT 2 MG/1 ML DISP.SYRIN IVPUSH PRN (21:43)
[2020-06-10] MEDS ORDERED: ACETAMINOPHEN INJECTION 100 ML IVPB ONE (22:52)
[2020-06-10] MEDS: LACTATED RINGERS SOLUTION 1,000 ML IV SCH (23:28)
[2020-06-11] MEDS: MORPHINE SULFATE 2 MG/ML VIAL IVPUSH PRN (00:25)
[2020-06-11 07:35] LABS: HEMATOCRIT 44.5 % (35.4-49); HEMOGLOBIN 14.9 GM/dL (11.7-16.9); MCH 31.7 pg (25.7-33.7); MCHC 33.5 g/dl (32.0-35.9); MEAN CELL VOLUME 94.6 fl (80-96); PLATELET COUNT 146 K/MM3 (134-434); RDW 13.7 % (11.9-15.9); WHITE BLOOD COUNT 10.5 K/mm3 (4.0-10.0)
[2020-06-11 08:13] LABS: ALBUMIN 3.1 g/dl (3.4-5.0); BLOOD UREA NITROGEN 9.7 mg/dL (7-18); CALCIUM 8.8 mg/dL (8.5-10.1)
[2020-06-11 08:17] LABS: CREATININE 0.9 mg/dL (0.55-1.3)
[2020-06-11 08:18] LABS: BILIRUBIN,TOTAL 1.9 mg/dL (0.2-1); TOT PROT 6.5 g/dl (6.4-8.2)
[2020-06-11] MEDS ORDERED: DEXTROSE 5%-WATER - 50 ML IVPB ONE (10:03)
[2020-06-11] MEDS ORDERED: cefTRIAXone SODIUM 1 GM VIAL ONE (10:03)
[2020-06-11] MEDS: CEFTRIAXONE 1 GM in DEXTROSE 5%-WATER - 50 ML IVPB SCH (10:09)
[2020-06-11] MEDS: amLODIPine BESYLATE 10 MG TABLET (FP) PO SCH (10:09)
[2020-06-11] MEDS: HEPARIN NA (PORCINE) 5,000 UNITS/ML 1ML VIAL SQ SCH ×2 (10:09→22:57)
[2020-06-11] MEDS: CARVEDILOL 25 MG TABLET (FP) PO SCH ×2 (10:09→22:57)
[2020-06-11] MEDS: LACTATED RINGERS SOLUTION 1,000 ML IV SCH (10:10)
[2020-06-11] MEDS ORDERED: PT OWN MED DRAWER 7, Y5N ONE ×2 (10:12→21:27)
[2020-06-11] MEDS: levETIRAcetam XR 750 MG TAB PO SCH ×2 (10:14→22:57)
[2020-06-11] MEDS: LORazepam 2 MG/ML SDV VIAL IVPUSH PRN (12:17)
[2020-06-11] MEDS: DONEPEZIL HCL 10 MG TABLET (FP) PO SCH (12:17)
[2020-06-11] MEDS: MEMANTINE HCL 10 MG TABLET (FP) PO SCH ×2 (12:17→22:57)
[2020-06-12] MEDS: MORPHINE SULFATE 2 MG/ML VIAL IVPUSH PRN (03:56)
[2020-06-12 08:12] LABS: BASO % 0.3 % (0-2.0); HEMATOCRIT 39.5 % (35.4-49); HEMOGLOBIN 12.9 GM/dL (11.7-16.9); MCH 30.7 pg (25.7-33.7); MCHC 32.7 g/dl (32.0-35.9); MEAN CELL VOLUME 93.9 fl (80-96); MEAN PLT VOLUME 10.5 fl (7.5-11.1); MONO % 8.5 % (3.8-10.2); NEUT % 81.2 % (42.8-82.8); PLATELET COUNT 137 K/MM3 (134-434); RDW 14.1 % (11.9-15.9); WHITE BLOOD COUNT 7.3 K/mm3 (4.0-10.0)
[2020-06-12 08:26] LABS: POTASSIUM 3.9 mmol/L (3.5-5.1)
[2020-06-12 08:31] LABS: ALBUMIN 2.5 g/dl (3.4-5.0); BLOOD UREA NITROGEN 12.7 mg/dL (7-18); CALCIUM 8.4 mg/dL (8.5-10.1)
[2020-06-12 08:34] LABS: CREATININE 0.8 mg/dL (0.55-1.3)
[2020-06-12 08:35] LABS: BILIRUBIN,TOTAL 0.8 mg/dL (0.2-1); TOT PROT 5.2 g/dl (6.4-8.2)
[2020-06-12] MEDS ORDERED: DEXTROSE 5%-WATER - 50 ML IVPB ONE (09:32)
[2020-06-12] MEDS ORDERED: cefTRIAXone SODIUM 1 GM VIAL ONE (09:32)
[2020-06-12] MEDS ORDERED: PT OWN MED DRAWER 7, Y5N ONE ×2 (09:55→20:03)
[2020-06-12] MEDS: DONEPEZIL HCL 10 MG TABLET (FP) PO SCH (09:58)
[2020-06-12] MEDS: CARVEDILOL 25 MG TABLET (FP) PO SCH ×3 (10:00→22:37)
[2020-06-12] MEDS: MEMANTINE HCL 10 MG TABLET (FP) PO SCH ×3 (10:00→22:37)
[2020-06-12] MEDS: levETIRAcetam XR 750 MG TAB PO SCH ×3 (10:00→22:37)
[2020-06-12] MEDS: amLODIPine BESYLATE 10 MG TABLET (FP) PO SCH (10:00)
[2020-06-12] MEDS: HEPARIN NA (PORCINE) 5,000 UNITS/ML 1ML VIAL SQ SCH ×3 (10:01→22:37)
[2020-06-12] MEDS: CEFTRIAXONE 1 GM in DEXTROSE 5%-WATER - 50 ML IVPB SCH (11:03)
[2020-06-12] MEDS: ACETAMINOPHEN 500 MG TABLET (FP) PO PRN (15:46)
[2020-06-13] MEDS: MORPHINE SULFATE 2 MG/ML VIAL IVPUSH PRN ×3 (00:12→15:03)
[2020-06-13 08:17] LABS: BASO % 0.6 % (0-2.0); EOS % 0.9 % (0-4.5); HEMOGLOBIN 12.6 GM/dL (11.7-16.9); LYMPH % 11.9 % (8-40); MCH 30.5 pg (25.7-33.7); MCHC 32.4 g/dl (32.0-35.9); MEAN CELL VOLUME 94.3 fl (80-96); MEAN PLT VOLUME 10.8 fl (7.5-11.1); MONO % 9.5 % (3.8-10.2); NEUT % 77.1 % (42.8-82.8); PLATELET COUNT 136 K/MM3 (134-434); RBC 4.13 M/mm3 (4.00-5.60); RDW 14.2 % (11.9-15.9)
[2020-06-13 08:34] LABS: ALBUMIN 2.4 g/dl (3.4-5.0)
[2020-06-13 08:36] LABS: BILIRUBIN,DIRECT 0.4 mg/dL (0.0-0.2)
[2020-06-13 08:38] LABS: BILIRUBIN,TOTAL 0.8 mg/dL (0.2-1); TOT PROT 5.2 g/dl (6.4-8.2)
[2020-06-13] MEDS ORDERED: PT OWN MED DRAWER 7, Y5N ONE ×4 (08:59→20:18)
[2020-06-13] MEDS ORDERED: DEXTROSE 5%-WATER - 50 ML IVPB ONE (09:00)
[2020-06-13] MEDS ORDERED: cefTRIAXone SODIUM 1 GM VIAL ONE (09:00)
[2020-06-13] MEDS: MEMANTINE HCL 10 MG TABLET (FP) PO SCH ×2 (10:04→21:16)
[2020-06-13] MEDS: amLODIPine BESYLATE 10 MG TABLET (FP) PO SCH (10:04)
[2020-06-13] MEDS: CARVEDILOL 25 MG TABLET (FP) PO SCH ×2 (10:04→21:16)
[2020-06-13] MEDS: DONEPEZIL HCL 10 MG TABLET (FP) PO SCH (10:04)
[2020-06-13] MEDS: HEPARIN NA (PORCINE) 5,000 UNITS/ML 1ML VIAL SQ SCH ×2 (10:05→21:16)
[2020-06-13] MEDS: levETIRAcetam XR 750 MG TAB PO SCH ×2 (10:35→21:16)
[2020-06-13] MEDS: CEFTRIAXONE 1 GM in DEXTROSE 5%-WATER - 50 ML IVPB SCH (11:29)
[2020-06-14] MEDS: LORazepam 2 MG/ML SDV VIAL IVPUSH PRN (02:00)
[2020-06-14] MEDS ORDERED: PT OWN MED DRAWER 7, Y5N ONE ×4 (09:17→22:07)
[2020-06-14] MEDS ORDERED: cefTRIAXone SODIUM 1 GM VIAL ONE ×2 (09:36→11:20)
[2020-06-14] MEDS ORDERED: DEXTROSE 5%-WATER - 50 ML IVPB ONE ×2 (09:36→11:20)
[2020-06-14] MEDS: amLODIPine BESYLATE 10 MG TABLET (FP) PO SCH (10:00)
[2020-06-14] MEDS: CARVEDILOL 25 MG TABLET (FP) PO SCH ×2 (10:00→22:12)
[2020-06-14] MEDS: MEMANTINE HCL 10 MG TABLET (FP) PO SCH ×2 (10:00→22:12)
[2020-06-14] MEDS: DONEPEZIL HCL 10 MG TABLET (FP) PO SCH (10:00)
[2020-06-14] MEDS: HEPARIN NA (PORCINE) 5,000 UNITS/ML 1ML VIAL SQ SCH ×2 (10:06→22:12)
[2020-06-14] MEDS: levETIRAcetam XR 750 MG TAB PO SCH ×2 (10:33→22:13)
[2020-06-14] MEDS: CEFTRIAXONE 1 GM in DEXTROSE 5%-WATER - 50 ML IVPB SCH (11:27)
[2020-06-14] MEDS: POLYETHYLENE GLYCOL 3350 119 GM BTL PO PRN (15:48)
[2020-06-14] MEDS: ACETAMINOPHEN 500 MG TABLET (FP) PO PRN ×2 (17:16→22:46)
[2020-06-15] MEDS ORDERED: FUROSEMIDE 40 MG/4 ML INJECTABLE VIAL IVPUSH ONE ×2 (03:09→17:37)
[2020-06-15] MEDS ORDERED: PT OWN MED DRAWER 7, Y5N ONE ×2 (09:15→22:41)
[2020-06-15] MEDS ORDERED: cefTRIAXone SODIUM 1 GM VIAL ONE (09:15)
[2020-06-15] MEDS ORDERED: DEXTROSE 5%-WATER - 50 ML IVPB ONE (09:15)
[2020-06-15] MEDS: DONEPEZIL HCL 10 MG TABLET (FP) PO SCH (09:19)
[2020-06-15] MEDS: CARVEDILOL 25 MG TABLET (FP) PO SCH ×2 (09:19→22:40)
[2020-06-15] MEDS: amLODIPine BESYLATE 10 MG TABLET (FP) PO SCH (09:20)
[2020-06-15] MEDS: MEMANTINE HCL 10 MG TABLET (FP) PO SCH ×2 (09:20→22:40)
[2020-06-15] MEDS: levETIRAcetam XR 750 MG TAB PO SCH ×2 (09:20→22:42)
[2020-06-15] MEDS: HEPARIN NA (PORCINE) 5,000 UNITS/ML 1ML VIAL SQ SCH ×2 (09:22→22:40)
[2020-06-15] MEDS: CEFTRIAXONE 1 GM in DEXTROSE 5%-WATER - 50 ML IVPB SCH (11:07)
[2020-06-15] MEDS: ACETAMINOPHEN 500 MG TABLET (FP) PO PRN (20:22)
[2020-06-15 21:18] LABS: BASO % 0.7 % (0-2.0); EOS % 1.1 % (0-4.5); HEMATOCRIT 44.8 % (35.4-49); HEMOGLOBIN 14.9 GM/dL (11.7-16.9); LYMPH % 10.1 % (8-40); MCH 31.3 pg (25.7-33.7); MCHC 33.2 g/dl (32.0-35.9); MEAN CELL VOLUME 94.4 fl (80-96); MEAN PLT VOLUME 10.5 fl (7.5-11.1); MONO % 7.7 % (3.8-10.2); NEUT % 80.4 % (42.8-82.8); PLATELET COUNT 187 K/MM3 (134-434); RBC 4.74 M/mm3 (4.00-5.60); RDW 13.9 % (11.9-15.9)
[2020-06-15 21:31] LABS: POTASSIUM 3.4 mmol/L (3.5-5.1)
[2020-06-15 21:34] LABS: ALBUMIN 2.8 g/dl (3.4-5.0); BLOOD UREA NITROGEN 7.7 mg/dL (7-18); CALCIUM 8.8 mg/dL (8.5-10.1); MAGNESIUM 1.4 mg/dL (1.8-2.4)
[2020-06-15 21:37] LABS: CREATININE 0.7 mg/dL (0.55-1.3)
[2020-06-15 21:39] LABS: BILIRUBIN,TOTAL 0.7 mg/dL (0.2-1); TOT PROT 5.8 g/dl (6.4-8.2)
[2020-06-15] MEDS ORDERED: POTASSIUM CHLORIDE TABS 20 MEQ TABLET.ER (FP) PO ONE (23:32)
[2020-06-15] MEDS ORDERED: MAGNESIUM SULF 50% (8.12 MEQ/2 ML-1 GM VIAL) IVPB ONE (23:32)
[2020-06-16] MEDS: ACETAMINOPHEN 500 MG TABLET (FP) PO PRN (04:30)
[2020-06-16] MEDS ORDERED: FUROSEMIDE 20 MG TABLET (FP) PO SCH (10:00)
[2020-06-16] MEDS ORDERED: cefTRIAXone SODIUM 1 GM VIAL ONE (10:29)
[2020-06-16] MEDS ORDERED: DEXTROSE 5%-WATER - 50 ML IVPB ONE (10:29)
[2020-06-16] MEDS ORDERED: PT OWN MED DRAWER 7, Y5N ONE ×2 (10:29→20:33)
[2020-06-16] MEDS: MEMANTINE HCL 10 MG TABLET (FP) PO SCH ×2 (10:43→21:05)
[2020-06-16] MEDS: CARVEDILOL 25 MG TABLET (FP) PO SCH ×2 (10:43→21:05)
[2020-06-16] MEDS: CEFTRIAXONE 1 GM in DEXTROSE 5%-WATER - 50 ML IVPB SCH (10:43)
[2020-06-16] MEDS: amLODIPine BESYLATE 10 MG TABLET (FP) PO SCH (10:43)
[2020-06-16] MEDS: DONEPEZIL HCL 10 MG TABLET (FP) PO SCH (10:44)
[2020-06-16] MEDS: HEPARIN NA (PORCINE) 5,000 UNITS/ML 1ML VIAL SQ SCH ×2 (10:44→21:04)
[2020-06-16] MEDS: levETIRAcetam XR 750 MG TAB PO SCH ×2 (10:44→21:06)
[2020-06-16] MEDS: FUROSEMIDE 40 MG/4 ML INJECTABLE VIAL IVPUSH SCH (10:44)
[2020-06-16] MEDS ORDERED: POTASSIUM CHLORIDE TABS 20 MEQ TABLET.ER (FP) PO ONE (11:00)
[2020-06-16 11:51] LABS: BASO % 1.5 % (0-2.0); EOS % 0.9 % (0-4.5); HEMOGLOBIN 15.3 GM/dL (11.7-16.9); LYMPH % 13.2 % (8-40); MCH 31.5 pg (25.7-33.7); MCHC 33.4 g/dl (32.0-35.9); MEAN CELL VOLUME 94.3 fl (80-96); MEAN PLT VOLUME 10.1 fl (7.5-11.1); MONO % 9.9 % (3.8-10.2); NEUT % 74.5 % (42.8-82.8); PLATELET COUNT 196 K/MM3 (134-434); RBC 4.88 M/mm3 (4.00-5.60); RDW 14.4 % (11.9-15.9); WHITE BLOOD COUNT 6.2 K/mm3 (4.0-10.0)
[2020-06-16 12:16] LABS: POTASSIUM 3.4 mmol/L (3.5-5.1)
[2020-06-16 12:18] LABS: ALBUMIN 2.7 g/dl (3.4-5.0); CALCIUM 8.5 mg/dL (8.5-10.1)
[2020-06-16 12:22] LABS: CREATININE 0.8 mg/dL (0.55-1.3)
[2020-06-16 12:23] LABS: BILIRUBIN,TOTAL 0.7 mg/dL (0.2-1); TOT PROT 5.9 g/dl (6.4-8.2)
[2020-06-17] MEDS ORDERED: DEXTROSE 5%-WATER - 50 ML IVPB ONE (09:38)
[2020-06-17] MEDS ORDERED: cefTRIAXone SODIUM 1 GM VIAL ONE (09:38)
[2020-06-17] MEDS ORDERED: PT OWN MED DRAWER 7, Y5N ONE ×2 (09:38→21:10)
[2020-06-17] MEDS: DONEPEZIL HCL 10 MG TABLET (FP) PO SCH (09:42)
[2020-06-17] MEDS: CARVEDILOL 25 MG TABLET (FP) PO SCH ×2 (09:43→22:13)
[2020-06-17] MEDS: amLODIPine BESYLATE 10 MG TABLET (FP) PO SCH (09:44)
[2020-06-17] MEDS: levETIRAcetam XR 750 MG TAB PO SCH ×2 (09:44→22:13)
[2020-06-17] MEDS: FUROSEMIDE 40 MG/4 ML INJECTABLE VIAL IVPUSH SCH (09:45)
[2020-06-17] MEDS: HEPARIN NA (PORCINE) 5,000 UNITS/ML 1ML VIAL SQ SCH (09:49)
[2020-06-17] MEDS: MEMANTINE HCL 10 MG TABLET (FP) PO SCH ×2 (09:51→22:13)
[2020-06-17] MEDS: CEFTRIAXONE 1 GM in DEXTROSE 5%-WATER - 50 ML IVPB SCH (11:01)
[2020-06-18 07:42] LABS: HEMATOCRIT 45.1 % (35.4-49); MCH 31.6 pg (25.7-33.7); MCHC 33.3 g/dl (32.0-35.9); MEAN CELL VOLUME 94.7 fl (80-96); MEAN PLT VOLUME 10.5 fl (7.5-11.1); PLATELET COUNT 187 K/MM3 (134-434); RBC 4.77 M/mm3 (4.00-5.60); RDW 13.8 % (11.9-15.9)
[2020-06-18 07:59] LABS: POTASSIUM 3.4 mmol/L (3.5-5.1)
[2020-06-18 08:14] LABS: CALCIUM 8.6 mg/dL (8.5-10.1)
[2020-06-18 08:16] LABS: ALBUMIN 2.8 g/dl (3.4-5.0); BLOOD UREA NITROGEN 7.2 mg/dL (7-18)
[2020-06-18 08:19] LABS: CREATININE 0.7 mg/dL (0.55-1.3)
[2020-06-18 08:20] LABS: TOT PROT 5.8 g/dl (6.4-8.2)
[2020-06-18] MEDS ORDERED: cefTRIAXone SODIUM 1 GM VIAL ONE (09:53)
[2020-06-18] MEDS ORDERED: DEXTROSE 5%-WATER - 50 ML IVPB ONE (09:53)
[2020-06-18] MEDS: DONEPEZIL HCL 10 MG TABLET (FP) PO SCH (10:04)
[2020-06-18] MEDS: CARVEDILOL 25 MG TABLET (FP) PO SCH ×2 (10:04→22:09)
[2020-06-18] MEDS: FUROSEMIDE 40 MG/4 ML INJECTABLE VIAL IVPUSH SCH (10:04)
[2020-06-18] MEDS: amLODIPine BESYLATE 10 MG TABLET (FP) PO SCH (10:04)
[2020-06-18] MEDS: levETIRAcetam XR 750 MG TAB PO SCH ×2 (10:05→22:09)
[2020-06-18] MEDS: MEMANTINE HCL 10 MG TABLET (FP) PO SCH ×2 (10:05→22:09)
[2020-06-18 16:47] LABS: BF WBC & OTHER NUCLEATED CELLS 324 /mm3
[2020-06-18 17:35] LABS: BODY FLUID MACROPHAGES 27 %; BODY FLUID MESOTHELIAL 4 %; BODY FLUID MONOCYTE 20 %; BODYL FLD EOSINOPHIL 1 %
[2020-06-18] MEDS ORDERED: PT OWN MED DRAWER 7, Y5N ONE (22:04)
[2020-06-19] MEDS ORDERED: PT OWN MED DRAWER 7, Y5N ONE ×2 (09:33→21:56)
[2020-06-19] MEDS: POLYETHYLENE GLYCOL 3350 119 GM BTL PO PRN (10:06)
[2020-06-19] MEDS: DONEPEZIL HCL 10 MG TABLET (FP) PO SCH (10:07)
[2020-06-19] MEDS: amLODIPine BESYLATE 10 MG TABLET (FP) PO SCH (10:07)
[2020-06-19] MEDS: CARVEDILOL 25 MG TABLET (FP) PO SCH ×2 (10:07→22:17)
[2020-06-19] MEDS: MEMANTINE HCL 10 MG TABLET (FP) PO SCH ×2 (10:09→22:17)
[2020-06-19] MEDS: levETIRAcetam XR 750 MG TAB PO SCH ×2 (10:09→22:17)
[2020-06-19] MEDS: FUROSEMIDE 40 MG/4 ML INJECTABLE VIAL IVPUSH SCH (10:10)
[2020-06-19] MEDS: HYDROCORTISONE 2.5% TOPICAL CREAM 30 GM TUBE TP SCH ×2 (11:35→22:17)
[2020-06-19] MEDS: HEPARIN NA (PORCINE) 5,000 UNITS/ML 1ML VIAL SQ SCH ×2 (11:36→22:17)
[2020-06-19] MEDS ORDERED: ALBUTEROL SO4 0.083% IH SOL 2.5 MG/3 ML VIAL.NEB. NEB PRN (12:47)
[2020-06-19] MEDS: ACETAMINOPHEN 500 MG TABLET (FP) PO PRN (15:01)
[2020-06-20] MEDS ORDERED: PT OWN MED DRAWER 7, Y5N ONE ×3 (10:37→22:09)
[2020-06-20] MEDS: DONEPEZIL HCL 10 MG TABLET (FP) PO SCH (10:45)
[2020-06-20] MEDS: HEPARIN NA (PORCINE) 5,000 UNITS/ML 1ML VIAL SQ SCH ×2 (10:45→22:11)
[2020-06-20] MEDS: POTASSIUM CHLORIDE ORAL LIQUID 20 MEQ/15 ML PO SCH (10:45)
[2020-06-20] MEDS: CARVEDILOL 25 MG TABLET (FP) PO SCH ×2 (10:45→22:12)
[2020-06-20] MEDS: amLODIPine BESYLATE 10 MG TABLET (FP) PO SCH (10:46)
[2020-06-20] MEDS: MEMANTINE HCL 10 MG TABLET (FP) PO SCH ×2 (10:46→22:11)
[2020-06-20] MEDS: levETIRAcetam XR 750 MG TAB PO SCH ×2 (10:47→22:12)
[2020-06-20] MEDS: HYDROCORTISONE 2.5% TOPICAL CREAM 30 GM TUBE TP SCH ×2 (10:48→22:12)
[2020-06-20] MEDS: FUROSEMIDE 40 MG/4 ML INJECTABLE VIAL IVPUSH SCH (10:50)
[2020-06-20 11:42] LABS: BASO % 1.6 % (0-2.0); EOS % 2.1 % (0-4.5); HEMATOCRIT 42.7 % (35.4-49); HEMOGLOBIN 14.1 GM/dL (11.7-16.9); LYMPH % 15.1 % (8-40); MCH 31.3 pg (25.7-33.7); MCHC 33.1 g/dl (32.0-35.9); MEAN CELL VOLUME 94.7 fl (80-96); MEAN PLT VOLUME 10.3 fl (7.5-11.1); MONO % 13.2 % (3.8-10.2); PLATELET COUNT 162 K/MM3 (134-434); RBC 4.51 M/mm3 (4.00-5.60); WHITE BLOOD COUNT 5.3 K/mm3 (4.0-10.0)
[2020-06-20 12:07] LABS: POTASSIUM 3.6 mmol/L (3.5-5.1)
[2020-06-20 12:09] LABS: CALCIUM 8.4 mg/dL (8.5-10.1)
[2020-06-20 12:10] LABS: ALBUMIN 2.4 g/dl (3.4-5.0); BLOOD UREA NITROGEN 12.6 mg/dL (7-18)
[2020-06-20 12:13] LABS: CREATININE 0.7 mg/dL (0.55-1.3)
[2020-06-20 12:14] LABS: BILIRUBIN,TOTAL 0.9 mg/dL (0.2-1); TOT PROT 5.4 g/dl (6.4-8.2)
[2020-06-20 17:07] LABS: BODY FLUID ALBUMIN 1.6 g/dL (Not Estab.)
[2020-06-21] MEDS: amLODIPine BESYLATE 10 MG TABLET (FP) PO SCH (10:37)
[2020-06-21] MEDS: MEMANTINE HCL 10 MG TABLET (FP) PO SCH (10:37)
[2020-06-21] MEDS: FUROSEMIDE 40 MG/4 ML INJECTABLE VIAL IVPUSH SCH (10:37)
[2020-06-21] MEDS: DONEPEZIL HCL 10 MG TABLET (FP) PO SCH (10:37)
[2020-06-21] MEDS: CARVEDILOL 25 MG TABLET (FP) PO SCH (10:37)
[2020-06-21] MEDS: POTASSIUM CHLORIDE ORAL LIQUID 20 MEQ/15 ML PO SCH (10:37)
[2020-06-21] MEDS: levETIRAcetam XR 750 MG TAB PO SCH (10:38)
[2020-06-21] MEDS: HEPARIN NA (PORCINE) 5,000 UNITS/ML 1ML VIAL SQ SCH (10:38)
[2020-06-21] MEDS: HYDROCORTISONE 2.5% TOPICAL CREAM 30 GM TUBE TP SCH (10:39)
[2020-06-21 11:32] VITALS: BP 106/60; TEMP 98
[2020-06-21 14:32] VITALS: PULSE 93
== END 2020-06-21 15:03 | disposition home health service (06) | DRG 418 ==
LOC: JER 09:05 → JERBED 15:20 → J8W 21:24
PROVIDERS: ADMIT Internal Medicine; ATTEND Internal Medicine
PROC: 0FT44ZZ Resection of Gallbladder, Percutaneous Endoscopic Approach (ICD-10-PCS; principal; 2020-06-10 18:00)
PROC: 0W993ZX Drainage of Right Pleural Cavity, Percutaneous Approach, Diagnostic (ICD-10-PCS; 2020-06-18)
DX: K80.00 Calculus of gallbladder with acute cholecystitis without obstruction (principal); I48.20 Chronic atrial fibrillation, unspecified; J90 Pleural effusion, not elsewhere classified; I50.22 Chronic systolic (congestive) heart failure; G30.9 Alzheimer's disease, unspecified; F02.80 Dementia in other diseases classified elsewhere, unspecified severity, without behavioral disturbance, psychotic disturbance, mood disturbance, and anxiety; E78.5 Hyperlipidemia, unspecified; G40.909 Epilepsy, unspecified, not intractable, without status epilepticus; I35.1 Nonrheumatic aortic (valve) insufficiency; D69.6 Thrombocytopenia, unspecified; I71.4 Abdominal aortic aneurysm, without rupture; I11.0 Hypertensive heart disease with heart failure; K82.A1 Gangrene of gallbladder in cholecystitis
CPT/HCPCS: 36415; 71045-TC-FY; 71046-TC-FY; 71250-TC; 74177-TC; 76705-TC; 76942; 80053; 80076; 81003; 82042; 82150; 82465; 82945; 83605; 83615; 83735; 83986; 84157; 84478; 84484; 85025; 85027; 85610; 85730; 87040; 87070; 87075; 87086; 87102; 87116; 87205; 87206; 87210; 88108; 88304-TC; 88305-TC; 93005; 93010; 93306-TC; 93971-TC; 94010; 94760; 94761; 97116-GP; 97161-GP; 99285-25; C9803; J0131; J1644; Q9967; U0003

== ENCOUNTER 2020-09-12 12:11 | Inpatient (IN) | payer OTHER ==
[2020-09-12] MEDS ORDERED: SODIUM CHLORIDE 1,000 ML IV SCH (13:00)
[2020-09-12 14:25] LABS: BASO % 0.7 % (0-2.0); EOS % 0.8 % (0-4.5); HEMATOCRIT 44.9 % (35.4-49); HEMOGLOBIN 15.1 GM/dL (11.7-16.9); LYMPH % 16.1 % (8-40); MCH 32.3 pg (25.7-33.7); MCHC 33.6 g/dl (32.0-35.9); MEAN CELL VOLUME 96.2 fl (80-96); MEAN PLT VOLUME 12.5 fl (7.5-11.1); MONO % 7.6 % (3.8-10.2); NEUT % 74.8 % (42.8-82.8); PLATELET COUNT 70 K/MM3 (134-434); RBC 4.66 M/mm3 (4.00-5.60); RDW 14.4 % (11.9-15.9); WHITE BLOOD COUNT 5.9 K/mm3 (4.0-10.0)
[2020-09-12 14:32] LABS: EPI CELLS >36 /uL (0-25.1); HYALINE CASTS 18 /uL (0-3.1); PH,URINE 5.5 (5.0-8.0); URINE APPEARANCE CLEAR; URINE BILIRUBIN 2+ (NEGATIVE); URINE COLOR DK YELLOW; URINE GLUCOSE (UA) NEGATIVE (NEGATIVE); URINE KETONE TRACE (NEGATIVE); URINE LEUK ESTERASE 1+ (NEGATIVE); URINE NITRITE POSITIVE (NEGATIVE); URINE PROTEIN 3+ (NEGATIVE); URINE RBC 14 /uL (0-23.9); URINE UROBILINOGEN 4.0 E.U/dl mg/dL (0.2-1.0); URINE WBC 23 /uL (0-25.8)
[2020-09-12] MEDS: SODIUM CHLORIDE 1,000 ML IV SCH (14:32)
[2020-09-12 14:34] LABS: INR 1.19 (0.83-1.09); PROTHROMBIN TIME (PATIENT) 14.6 SEC (9.7-13.0)
[2020-09-12 14:36] LABS: ACTIVATED PTT 35.7 SECONDS (25.2-36.5)
[2020-09-12] MEDS ORDERED: CEFTRIAXONE 1 GM in DEXTROSE 5%-WATER - 50 ML IVPB ONE (14:37)
[2020-09-12 14:57] LABS: PHOSPHOROUS 3.8 mg/dL (2.5-4.9)
[2020-09-12 15:00] LABS: ALBUMIN 3.7 g/dl (3.4-5.0); BLOOD UREA NITROGEN 21.3 mg/dL (7-18); N-TERMINAL BNP 7723.7 pg/ml (5-450)
[2020-09-12 15:03] LABS: CREATININE 1.2 mg/dL (0.55-1.3)
[2020-09-12 15:04] LABS: BILIRUBIN,TOTAL 1.5 mg/dL (0.2-1)
[2020-09-12 15:05] LABS: TOT PROT 7.3 g/dl (6.4-8.2)
[2020-09-12] MEDS ORDERED: CEFTRIAXONE 1 GM/50 ML BAG ONE (15:31)
[2020-09-12] MEDS ORDERED: POLYETHYLENE GLYCOL 3350 119 GM BTL PO PRN (17:41)
[2020-09-12] MEDS ORDERED: CARVEDILOL 12.5 MG TABLET (FP) ONE (21:23)
[2020-09-12] MEDS ORDERED: levETIRAcetam 500 MG TABLET (FP) PO ONE (21:23)
[2020-09-12] MEDS: HYDROCORTISONE 2.5% TOPICAL CREAM 30 GM TUBE TP SCH (22:02)
[2020-09-12] MEDS: MEMANTINE HCL 10 MG TABLET (FP) PO SCH (22:02)
[2020-09-12] MEDS: levETIRAcetam XR 750 MG TAB PO SCH (22:02)
[2020-09-12] MEDS: CARVEDILOL 25 MG TABLET (FP) PO SCH (22:02)
[2020-09-13 03:33] VITALS: BMI 26.9
[2020-09-13] MEDS ORDERED: PT OWN MED DRAWER 7, Y5N ONE ×3 (09:29→21:13)
[2020-09-13] MEDS: MEMANTINE HCL 10 MG TABLET (FP) PO SCH ×2 (09:34→21:18)
[2020-09-13] MEDS: MULTIVITAMINS THER W-MINERALS COMBO TABLET (FP) PO SCH (09:34)
[2020-09-13] MEDS: CARVEDILOL 25 MG TABLET (FP) PO SCH ×2 (09:34→21:18)
[2020-09-13] MEDS: CHOLECALCIFEROL (VIT D3) 1,000 UNIT (25 MCG) TABLET PO SCH (09:34)
[2020-09-13] MEDS: levETIRAcetam XR 750 MG TAB PO SCH ×2 (09:34→21:18)
[2020-09-13] MEDS: ASPIRIN 81 MG CHEWABLE TABLETS PO SCH (09:34)
[2020-09-13] MEDS: ENOXAPARIN NA (PORCINE) 40 MG/0.4 ML DISP.SYRIN SQ SCH (09:35)
[2020-09-13] MEDS: HYDROCORTISONE 2.5% TOPICAL CREAM 30 GM TUBE TP SCH ×2 (09:35→22:33)
[2020-09-13] MEDS: DONEPEZIL HCL 5 MG TABLET (FP) PO SCH (09:43)
[2020-09-13] MEDS ORDERED: PANTOPRAZOLE 40 MG TABLET PO SCH (10:00)
[2020-09-13 10:30] LABS: BASO % 1.1 % (0-2.0); EOS % 1.4 % (0-4.5); HEMATOCRIT 41.4 % (35.4-49); HEMOGLOBIN 13.8 GM/dL (11.7-16.9); LYMPH % 17.3 % (8-40); MCH 32.1 pg (25.7-33.7); MCHC 33.4 g/dl (32.0-35.9); MEAN CELL VOLUME 96.3 fl (80-96); MEAN PLT VOLUME 12.9 fl (7.5-11.1); MONO % 8.4 % (3.8-10.2); NEUT % 71.8 % (42.8-82.8); PLATELET COUNT 63 K/MM3 (134-434); RBC 4.29 M/mm3 (4.00-5.60); RDW 14.3 % (11.9-15.9); WHITE BLOOD COUNT 5.3 K/mm3 (4.0-10.0)
[2020-09-13 11:30] LABS: ALBUMIN 3.6 g/dl (3.4-5.0)
[2020-09-13 11:33] LABS: CREATININE 0.9 mg/dL (0.55-1.3)
[2020-09-13 11:37] LABS: BILIRUBIN,TOTAL 1.7 mg/dL (0.2-1)
[2020-09-13] MEDS ORDERED: DEXTROSE 5%-WATER - 50 ML IVPB ONE (12:15)
[2020-09-13] MEDS ORDERED: cefTRIAXone SODIUM 1 GM VIAL ONE (12:15)
[2020-09-13] MEDS: CEFTRIAXONE 1 GM in DEXTROSE 5%-WATER - 50 ML IVPB SCH (12:21)
[2020-09-13] MEDS: VITAMIN B COMPLEX W/C COMBO TABLET (FP) PO SCH (12:21)
[2020-09-13] MEDS: FAMOTIDINE 10 MG TABLET PO SCH (21:18)
[2020-09-14] MEDS ORDERED: PT OWN MED DRAWER 7, Y5N ONE (10:12)
[2020-09-14] MEDS ORDERED: cefTRIAXone SODIUM 1 GM VIAL ONE (10:13)
[2020-09-14] MEDS ORDERED: DEXTROSE 5%-WATER - 50 ML IVPB ONE (10:13)
[2020-09-14 10:19] LABS: HEMATOCRIT 39.8 % (35.4-49); HEMOGLOBIN 13.5 GM/dL (11.7-16.9); MCH 32.5 pg (25.7-33.7); MEAN CELL VOLUME 95.6 fl (80-96); MEAN PLT VOLUME 12.4 fl (7.5-11.1); PLATELET COUNT 54 K/MM3 (134-434); RBC 4.17 M/mm3 (4.00-5.60); RDW 14.1 % (11.9-15.9); WHITE BLOOD COUNT 4.6 K/mm3 (4.0-10.0)
[2020-09-14] MEDS: CEFTRIAXONE 1 GM in DEXTROSE 5%-WATER - 50 ML IVPB SCH (10:19)
[2020-09-14] MEDS: CARVEDILOL 25 MG TABLET (FP) PO SCH ×2 (10:20→21:09)
[2020-09-14] MEDS: MEMANTINE HCL 10 MG TABLET (FP) PO SCH ×2 (10:20→21:09)
[2020-09-14] MEDS: ASPIRIN 81 MG CHEWABLE TABLETS PO SCH (10:20)
[2020-09-14] MEDS: MULTIVITAMINS THER W-MINERALS COMBO TABLET (FP) PO SCH (10:20)
[2020-09-14] MEDS: DONEPEZIL HCL 5 MG TABLET (FP) PO SCH (10:20)
[2020-09-14] MEDS: CHOLECALCIFEROL (VIT D3) 1,000 UNIT (25 MCG) TABLET PO SCH (10:20)
[2020-09-14] MEDS: ENOXAPARIN NA (PORCINE) 40 MG/0.4 ML DISP.SYRIN SQ SCH (10:21)
[2020-09-14] MEDS: levETIRAcetam XR 750 MG TAB PO SCH ×2 (10:21→21:09)
[2020-09-14] MEDS: FAMOTIDINE 10 MG TABLET PO SCH ×2 (10:21→21:09)
[2020-09-14] MEDS: HYDROCORTISONE 2.5% TOPICAL CREAM 30 GM TUBE TP SCH ×2 (10:22→21:09)
[2020-09-14] MEDS: VITAMIN B COMPLEX W/C COMBO TABLET (FP) PO SCH (10:22)
[2020-09-14] MEDS: SODIUM CHLORIDE 1,000 ML IV SCH (16:47)
[2020-09-14] MEDS: ACETAMINOPHEN 500 MG TABLET (FP) PO PRN (21:09)
[2020-09-15] MEDS ORDERED: DEXTROSE 5%-WATER - 50 ML IVPB ONE (09:00)
[2020-09-15] MEDS ORDERED: cefTRIAXone SODIUM 1 GM VIAL ONE (09:00)
[2020-09-15] MEDS: CARVEDILOL 25 MG TABLET (FP) PO SCH ×2 (09:20→21:03)
[2020-09-15] MEDS: MULTIVITAMINS THER W-MINERALS COMBO TABLET (FP) PO SCH (09:20)
[2020-09-15] MEDS: CHOLECALCIFEROL (VIT D3) 1,000 UNIT (25 MCG) TABLET PO SCH (09:20)
[2020-09-15] MEDS: MEMANTINE HCL 10 MG TABLET (FP) PO SCH ×2 (09:20→21:03)
[2020-09-15] MEDS: ASPIRIN 81 MG CHEWABLE TABLETS PO SCH (09:20)
[2020-09-15] MEDS: DONEPEZIL HCL 5 MG TABLET (FP) PO SCH (09:20)
[2020-09-15] MEDS: FAMOTIDINE 10 MG TABLET PO SCH ×2 (09:21→21:03)
[2020-09-15] MEDS: VITAMIN B COMPLEX W/C COMBO TABLET (FP) PO SCH (09:22)
[2020-09-15] MEDS: levETIRAcetam XR 750 MG TAB PO SCH ×2 (09:22→21:03)
[2020-09-15] MEDS: CEFTRIAXONE 1 GM in DEXTROSE 5%-WATER - 50 ML IVPB SCH (09:23)
[2020-09-15] MEDS: HYDROCORTISONE 2.5% TOPICAL CREAM 30 GM TUBE TP SCH ×2 (09:30→21:03)
[2020-09-15 10:34] LABS: BASO % 1.2 % (0-2.0); EOS % 1.1 % (0-4.5); HEMATOCRIT 40.4 % (35.4-49); HEMOGLOBIN 13.5 GM/dL (11.7-16.9); LYMPH % 16.4 % (8-40); MCH 32.3 pg (25.7-33.7); MCHC 33.5 g/dl (32.0-35.9); MEAN CELL VOLUME 96.3 fl (80-96); MEAN PLT VOLUME 12.9 fl (7.5-11.1); MONO % 7.3 % (3.8-10.2); PLATELET COUNT 57 K/MM3 (134-434); RBC 4.19 M/mm3 (4.00-5.60); WHITE BLOOD COUNT 4.9 K/mm3 (4.0-10.0)
[2020-09-15] MEDS: SODIUM CHLORIDE 1,000 ML IV SCH (15:39)
[2020-09-15] MEDS ORDERED: PT OWN MED DRAWER 7, Y5N ONE (20:01)
[2020-09-16] MEDS ORDERED: cefTRIAXone SODIUM 1 GM VIAL ONE (10:22)
[2020-09-16] MEDS ORDERED: DEXTROSE 5%-WATER - 50 ML IVPB ONE (10:22)
[2020-09-16] MEDS: CEFTRIAXONE 1 GM in DEXTROSE 5%-WATER - 50 ML IVPB SCH (10:27)
[2020-09-16] MEDS: MULTIVITAMINS THER W-MINERALS COMBO TABLET (FP) PO SCH (10:28)
[2020-09-16] MEDS: MEMANTINE HCL 10 MG TABLET (FP) PO SCH ×2 (10:29→22:00)
[2020-09-16] MEDS: CARVEDILOL 25 MG TABLET (FP) PO SCH ×2 (10:29→22:00)
[2020-09-16] MEDS: HYDROCORTISONE 2.5% TOPICAL CREAM 30 GM TUBE TP SCH ×2 (10:29→22:00)
[2020-09-16] MEDS: DONEPEZIL HCL 5 MG TABLET (FP) PO SCH (10:29)
[2020-09-16] MEDS: ASPIRIN 81 MG CHEWABLE TABLETS PO SCH (10:30)
[2020-09-16] MEDS: FAMOTIDINE 10 MG TABLET PO SCH ×2 (10:31→22:00)
[2020-09-16] MEDS: VITAMIN B COMPLEX W/C COMBO TABLET (FP) PO SCH (10:32)
[2020-09-16] MEDS: levETIRAcetam XR 750 MG TAB PO SCH ×2 (10:32→22:00)
[2020-09-16] MEDS: CHOLECALCIFEROL (VIT D3) 1,000 UNIT (25 MCG) TABLET PO SCH (10:33)
[2020-09-16] MEDS: SODIUM CHLORIDE 1,000 ML IV SCH (19:59)
[2020-09-16] MEDS ORDERED: PT OWN MED DRAWER 7, Y5N ONE (20:39)
[2020-09-16] MEDS: ALBUTEROL SO4 0.083% IH SOL 2.5 MG/3 ML VIAL.NEB. NEB PRN (21:15)
[2020-09-17] MEDS: ACETAMINOPHEN 500 MG TABLET (FP) PO PRN (01:57)
[2020-09-17] MEDS: ALBUTEROL SO4 0.083% IH SOL 2.5 MG/3 ML VIAL.NEB. NEB PRN (03:17)
[2020-09-17] MEDS ORDERED: DEXTROSE 5%-WATER - 50 ML IVPB ONE (09:28)
[2020-09-17] MEDS ORDERED: cefTRIAXone SODIUM 1 GM VIAL ONE (09:28)
[2020-09-17] MEDS: CEFTRIAXONE 1 GM in DEXTROSE 5%-WATER - 50 ML IVPB SCH (10:26)
[2020-09-17] MEDS: CARVEDILOL 25 MG TABLET (FP) PO SCH (10:27)
[2020-09-17] MEDS: MULTIVITAMINS THER W-MINERALS COMBO TABLET (FP) PO SCH (10:27)
[2020-09-17] MEDS: MEMANTINE HCL 10 MG TABLET (FP) PO SCH (10:27)
[2020-09-17] MEDS: HYDROCORTISONE 2.5% TOPICAL CREAM 30 GM TUBE TP SCH (10:27)
[2020-09-17] MEDS: FAMOTIDINE 10 MG TABLET PO SCH (10:27)
[2020-09-17] MEDS: ASPIRIN 81 MG CHEWABLE TABLETS PO SCH (10:27)
[2020-09-17] MEDS: DONEPEZIL HCL 5 MG TABLET (FP) PO SCH (10:27)
[2020-09-17] MEDS: levETIRAcetam XR 750 MG TAB PO SCH (10:28)
[2020-09-17] MEDS: VITAMIN B COMPLEX W/C COMBO TABLET (FP) PO SCH (10:28)
[2020-09-17] MEDS: CHOLECALCIFEROL (VIT D3) 1,000 UNIT (25 MCG) TABLET PO SCH (10:28)
[2020-09-17 13:53] VITALS: BP 132/70; PULSE 68; TEMP 97.6
== END 2020-09-17 14:13 | disposition home or self-care (01) | DRG 689 ==
LOC: JER 12:11 → JERBED 15:44 → J8W 09-13 02:17
PROVIDERS: ADMIT Internal Medicine; ATTEND Internal Medicine
DX: N39.0 Urinary tract infection, site not specified (principal); G93.41 Metabolic encephalopathy; J98.11 Atelectasis; I48.20 Chronic atrial fibrillation, unspecified; G30.9 Alzheimer's disease, unspecified; D69.6 Thrombocytopenia, unspecified; Z87.891 Personal history of nicotine dependence; I71.4 Abdominal aortic aneurysm, without rupture
CPT/HCPCS: 36415; 70450-TC; 71045-TC-FY; 80053; 80061; 81003; 82550; 82962; 83605; 83721; 83735; 83880; 84100; 84443; 84484; 85025; 85027; 85610; 85730; 86850; 86900; 86901; 87040; 87086; 93005; 93010; 93308; 94640; 97116-GP; 97161-GP; 99285-25; C9803; U0003

== ENCOUNTER 2020-09-26 07:15 | Emergency (ER) | payer OTHER ==
[2020-09-26] MEDS ORDERED: ACETAMINOPHEN 1000 MG/100 ML VIAL (NON FORMULARY) IVPB ONE (08:23)
[2020-09-26] MEDS ORDERED: MAG HYDROX/AL HYDROX/SIMETH -MYLANTA- ORAL SUSPENSION PO ONE (08:40)
[2020-09-26] MEDS ORDERED: FAMOTIDINE 20 MG/50 ML IVPB 20 MG in PREMIX 50 IVPB ONE (08:40)
[2020-09-26 09:18] VITALS: BP 134/85; PULSE 75; TEMP 98.5; BMI 27.3
[2020-09-26] MEDS ORDERED: FAMOTIDINE 20 MG/50 ML IVPB 20 MG/50 ML MG IVPB ONE (09:35)
[2020-09-26] MEDS ORDERED: MAG HYDROX/AL HYDROX/SIMETH 30 ML UNIT-DOSE CUP ONE (09:35)
[2020-09-26] MEDS ORDERED: ACETAMINOPHEN INJECTION 100 ML IVPB ONE (09:35)
[2020-09-26 10:20] LABS: BASO % 0.9 % (0-2.0)
[2020-09-26 10:23] LABS: EOS % 1.8 % (0-4.5); HEMATOCRIT 43.2 % (35.4-49); HEMOGLOBIN 14.3 GM/dL (11.7-16.9); LYMPH % 13.9 % (8-40); MCH 32.3 pg (25.7-33.7); MCHC 33.1 g/dl (32.0-35.9); MEAN CELL VOLUME 97.5 fl (80-96); MEAN PLT VOLUME 12.5 fl (7.5-11.1); MONO % 11.4 % (3.8-10.2); PLATELET COUNT 75 K/MM3 (134-434); RBC 4.43 M/mm3 (4.00-5.60); RDW 14.9 % (11.9-15.9); WHITE BLOOD COUNT 6.1 K/mm3 (4.0-10.0)
[2020-09-26 10:40] LABS: POTASSIUM 4.1 mmol/L (3.5-5.1)
[2020-09-26 10:42] LABS: ALBUMIN 3.2 g/dl (3.4-5.0); BLOOD UREA NITROGEN 18.7 mg/dL (7-18); CALCIUM 8.9 mg/dL (8.5-10.1)
[2020-09-26 10:45] LABS: CREATININE 0.9 mg/dL (0.55-1.3)
[2020-09-26 10:50] LABS: N-TERMINAL BNP 4044.9 pg/ml (5-450)
[2020-09-26 10:52] LABS: BILIRUBIN,TOTAL 2.6 mg/dL (0.2-1)
[2020-09-26 14:35] LABS: URINE APPEARANCE CLEAR; URINE COLOR DK YELLOW
[2020-09-26 14:36] LABS: EPI CELLS 3 /uL (0-25.1); HYALINE CASTS 3 /uL (0-3.1); PH,URINE 5.5 (5.0-8.0); URINE BACTERIA 93 /uL (0-1359); URINE BILIRUBIN 1+ (NEGATIVE); URINE GLUCOSE (UA) NEGATIVE (NEGATIVE); URINE KETONE NEGATIVE (NEGATIVE); URINE NITRITE NEGATIVE (NEGATIVE); URINE PROTEIN 1+ (NEGATIVE); URINE RBC 21 /uL (0-23.9); URINE UROBILINOGEN 4.0 E.U/dl mg/dL (0.2-1.0); URINE WBC 12 /uL (0-25.8)
[2020-09-26 14:59] LABS: URINE LEUK ESTERASE NEGATIVE (NEGATIVE)
== END 2020-09-26 15:00 | disposition home or self-care (01) ==
LOC: JER 07:15
PROC: 3E033NZ Introduction of Analgesics, Hypnotics, Sedatives into Peripheral Vein, Percutaneous Approach (ICD-10-PCS; principal; 2020-09-26)
PROC: 3E033GC Introduction of Other Therapeutic Substance into Peripheral Vein, Percutaneous Approach (ICD-10-PCS; 2020-09-26)
DX: K40.21 Bilateral inguinal hernia, without obstruction or gangrene, recurrent (principal); J18.9 Pneumonia, unspecified organism
CPT/HCPCS: 36415; 74177-TC; 80053; 81003; 82550; 83605; 83690; 83880; 84484; 85025; 87086; 93005; 93010; J0131; Q9967

== ENCOUNTER 2020-09-29 11:47 | Inpatient (IN) | payer OTHER ==
[2020-09-29 13:29] LABS: BASO % 0.7 % (0-2.0); HEMATOCRIT 39.4 % (35.4-49); HEMOGLOBIN 13.3 GM/dL (11.7-16.9); LYMPH % 12.3 % (8-40); MCHC 33.8 g/dl (32.0-35.9); MEAN CELL VOLUME 97.7 fl (80-96); MEAN PLT VOLUME 11.9 fl (7.5-11.1); MONO % 11.4 % (3.8-10.2); NEUT % 74.6 % (42.8-82.8); PLATELET COUNT 60 K/MM3 (134-434); RBC 4.04 M/mm3 (4.00-5.60); RDW 15.1 % (11.9-15.9); WHITE BLOOD COUNT 5.8 K/mm3 (4.0-10.0)
[2020-09-29 13:42] LABS: INR 1.32 (0.83-1.09); PROTHROMBIN TIME (PATIENT) 15.9 SEC (9.7-13.0)
[2020-09-29 13:45] LABS: ACTIVATED PTT 35.5 SECONDS (25.2-36.5)
[2020-09-29 13:46] LABS: POTASSIUM 4.1 mmol/L (3.5-5.1)
[2020-09-29 13:48] LABS: CALCIUM 8.9 mg/dL (8.5-10.1)
[2020-09-29 13:53] LABS: BILIRUBIN,TOTAL 2.1 mg/dL (0.2-1)
[2020-09-29 13:54] LABS: TOT PROT 6.4 g/dl (6.4-8.2)
[2020-09-29] MEDS ORDERED: PIPERACILLIN/TAZOB 4.5 GM 4.5 GM in DEXTROSE 5%-WATER 100 ML IVPB ONE (14:34)
[2020-09-29] MEDS ORDERED: FUROSEMIDE 40 MG/4 ML INJECTABLE VIAL IVPUSH ONE (14:34)
[2020-09-29] MEDS ORDERED: PIPERACILLIN/TAZOB 4.5 GM 4.5 GM/100 ML BAG IVPB ONE (14:44)
[2020-09-29] MEDS ORDERED: FUROSEMIDE 40 MG/4 ML INJECTABLE VIAL ONE (14:44)
[2020-09-30] MEDS ORDERED: ALBUTEROL SO4 HFA INHALER IH PRN (00:47)
[2020-09-30] MEDS ORDERED: PIPERACILLIN/TAZOBACTAM 4.5 GM VIAL IVPB ONE ×2 (01:10→09:09)
[2020-09-30] MEDS ORDERED: DEXTROSE 5%-WATER 100 ML IVPB ONE ×3 (01:11→11:43)
[2020-09-30] MEDS: levETIRAcetam 500 MG TABLET (FP) PO SCH ×3 (01:30→21:26)
[2020-09-30] MEDS: MEMANTINE HCL 5 MG TABLET (UD) PO SCH ×3 (01:31→21:27)
[2020-09-30] MEDS: PIPERACILLIN/TAZOB 4.5 GM 4.5 GM in DEXTROSE 5%-WATER 100 ML IVPB SCH ×2 (01:31→10:07)
[2020-09-30] MEDS ORDERED: PIPERACILLIN/TAZOB 4.5 GM 4.5 GM in DEXTROSE 5%-WATER 100 ML IVPB SCH (02:00)
[2020-09-30 07:46] LABS: BASO % 0.9 % (0-2.0); EOS % 1.8 % (0-4.5); HEMATOCRIT 37.6 % (35.4-49); HEMOGLOBIN 12.5 GM/dL (11.7-16.9); LYMPH % 13.3 % (8-40); MCH 32.8 pg (25.7-33.7); MCHC 33.2 g/dl (32.0-35.9); MONO % 12.8 % (3.8-10.2); NEUT % 71.2 % (42.8-82.8); PLATELET COUNT 45 K/MM3 (134-434); RDW 14.8 % (11.9-15.9); WHITE BLOOD COUNT 4.8 K/mm3 (4.0-10.0)
[2020-09-30 07:55] LABS: POTASSIUM 3.9 mmol/L (3.5-5.1)
[2020-09-30 08:03] LABS: ALBUMIN 2.5 g/dl (3.4-5.0); BLOOD UREA NITROGEN 21.4 mg/dL (7-18); CALCIUM 8.6 mg/dL (8.5-10.1)
[2020-09-30 08:07] LABS: CREATININE 0.9 mg/dL (0.55-1.3)
[2020-09-30 08:08] LABS: BILIRUBIN,TOTAL 2.1 mg/dL (0.2-1); TOT PROT 5.5 g/dl (6.4-8.2)
[2020-09-30 09:39] LABS: PLATELET ESTIMATE DECREASED
[2020-09-30] MEDS: CARVEDILOL 25 MG TABLET (FP) PO SCH ×2 (10:06→21:26)
[2020-09-30] MEDS: amLODIPine BESYLATE 10 MG TABLET (FP) PO SCH (10:07)
[2020-09-30 10:20] LABS: EPI CELLS 2 /uL (0-25.1); HYALINE CASTS 0 /uL (0-3.1); URINE APPEARANCE TURBID; URINE BACTERIA 1 /uL (0-1359); URINE BILIRUBIN 1+ (NEGATIVE); URINE COLOR DK YELLOW; URINE GLUCOSE (UA) NEGATIVE (NEGATIVE); URINE KETONE NEGATIVE (NEGATIVE); URINE LEUK ESTERASE NEGATIVE (NEGATIVE); URINE NITRITE NEGATIVE (NEGATIVE); URINE PROTEIN 1+ (NEGATIVE); URINE RBC 5 /uL (0-23.9); URINE WBC 6 /uL (0-25.8)
[2020-09-30] MEDS: AZITHROMYCIN IVPB 500 MG/250 ML BAG IVPB SCH (12:04)
[2020-09-30] MEDS: CEFTRIAXONE 2 GM in DEXTROSE 5%-WATER 2 GM/100 ML BAG IVPB SCH (13:41)
[2020-09-30] MEDS: FUROSEMIDE 40 MG/4 ML INJECTABLE VIAL IVPUSH SCH (14:56)
[2020-09-30] MEDS: DONEPEZIL HCL 5 MG TABLET (FP) PO SCH (21:26)
[2020-09-30] MEDS: MIRTAZAPINE 15 MG TABLET (FP) PO SCH (21:27)
[2020-10-01 08:47] LABS: BASO % 1.1 % (0-2.0); EOS % 2.1 % (0-4.5); HEMATOCRIT 37.1 % (35.4-49); HEMOGLOBIN 12.2 GM/dL (11.7-16.9); LYMPH % 16.3 % (8-40); MCH 32.5 pg (25.7-33.7); MCHC 32.8 g/dl (32.0-35.9); MEAN CELL VOLUME 98.9 fl (80-96); MEAN PLT VOLUME 12.6 fl (7.5-11.1); MONO % 12.4 % (3.8-10.2); NEUT % 68.1 % (42.8-82.8); PLATELET COUNT 56 K/MM3 (134-434); RBC 3.76 M/mm3 (4.00-5.60); RDW 14.6 % (11.9-15.9)
[2020-10-01 09:14] LABS: POTASSIUM 3.7 mmol/L (3.5-5.1)
[2020-10-01 09:16] LABS: CALCIUM 8.3 mg/dL (8.5-10.1)
[2020-10-01 09:17] LABS: ALBUMIN 2.5 g/dl (3.4-5.0); BLOOD UREA NITROGEN 21.9 mg/dL (7-18)
[2020-10-01 09:19] LABS: BILIRUBIN,DIRECT 1.4 mg/dL (0.0-0.2)
[2020-10-01 09:21] LABS: BILIRUBIN,TOTAL 1.8 mg/dL (0.2-1); TOT PROT 5.6 g/dl (6.4-8.2)
[2020-10-01] MEDS ORDERED: DEXTROSE 5%-WATER 100 ML IVPB ONE (10:08)
[2020-10-01] MEDS: AZITHROMYCIN IVPB 500 MG/250 ML BAG IVPB SCH (10:16)
[2020-10-01] MEDS: FUROSEMIDE 40 MG/4 ML INJECTABLE VIAL IVPUSH SCH (10:16)
[2020-10-01] MEDS: CEFTRIAXONE 2 GM in DEXTROSE 5%-WATER 2 GM/100 ML BAG IVPB SCH (10:16)
[2020-10-01] MEDS: levETIRAcetam 500 MG TABLET (FP) PO SCH ×2 (10:17→21:39)
[2020-10-01] MEDS: amLODIPine BESYLATE 10 MG TABLET (FP) PO SCH (10:17)
[2020-10-01] MEDS: CARVEDILOL 25 MG TABLET (FP) PO SCH ×2 (10:17→21:39)
[2020-10-01] MEDS: MEMANTINE HCL 5 MG TABLET (UD) PO SCH ×2 (10:17→21:40)
[2020-10-01] MEDS: DONEPEZIL HCL 5 MG TABLET (FP) PO SCH (21:39)
[2020-10-01] MEDS: MIRTAZAPINE 15 MG TABLET (FP) PO SCH (21:40)
[2020-10-02] MEDS ORDERED: DEXTROSE 5%-WATER 100 ML IVPB ONE (10:34)
[2020-10-02] MEDS: AZITHROMYCIN IVPB 500 MG/250 ML BAG IVPB SCH (10:56)
[2020-10-02] MEDS: CARVEDILOL 25 MG TABLET (FP) PO SCH ×2 (10:57→21:50)
[2020-10-02] MEDS: CEFTRIAXONE 2 GM in DEXTROSE 5%-WATER 2 GM/100 ML BAG IVPB SCH (10:57)
[2020-10-02] MEDS: MEMANTINE HCL 5 MG TABLET (UD) PO SCH ×2 (10:57→21:49)
[2020-10-02] MEDS: levETIRAcetam 500 MG TABLET (FP) PO SCH ×2 (10:57→21:49)
[2020-10-02] MEDS: FUROSEMIDE 40 MG/4 ML INJECTABLE VIAL IVPUSH SCH (10:57)
[2020-10-02] MEDS: amLODIPine BESYLATE 10 MG TABLET (FP) PO SCH (10:57)
[2020-10-02] MEDS: MIRTAZAPINE 15 MG TABLET (FP) PO SCH (21:49)
[2020-10-02] MEDS: DONEPEZIL HCL 5 MG TABLET (FP) PO SCH (21:50)
[2020-10-03 08:05] LABS: HEMATOCRIT 36.7 % (35.4-49); HEMOGLOBIN 12.2 GM/dL (11.7-16.9); MCH 32.7 pg (25.7-33.7); MCHC 33.3 g/dl (32.0-35.9); MEAN CELL VOLUME 98.2 fl (80-96); MEAN PLT VOLUME 13.1 fl (7.5-11.1); PLATELET COUNT 50 K/MM3 (134-434); RBC 3.73 M/mm3 (4.00-5.60); RDW 14.2 % (11.9-15.9); WHITE BLOOD COUNT 4.3 K/mm3 (4.0-10.0)
[2020-10-03 08:20] LABS: POTASSIUM 3.7 mmol/L (3.5-5.1)
[2020-10-03] MEDS: BUDESONIDE 0.5 MG/2 ML INH SUSP VIAL NEB SCH ×3 (08:32→20:41)
[2020-10-03 08:37] LABS: BLOOD UREA NITROGEN 16.7 mg/dL (7-18)
[2020-10-03 08:38] LABS: ALBUMIN 2.5 g/dl (3.4-5.0); CALCIUM 8.6 mg/dL (8.5-10.1)
[2020-10-03 08:40] LABS: CREATININE 0.8 mg/dL (0.55-1.3)
[2020-10-03 08:41] LABS: BILIRUBIN,TOTAL 1.8 mg/dL (0.2-1); TOT PROT 5.5 g/dl (6.4-8.2)
[2020-10-03] MEDS ORDERED: DEXTROSE 5%-WATER 100 ML IVPB ONE (09:07)
[2020-10-03] MEDS: FUROSEMIDE 40 MG/4 ML INJECTABLE VIAL IVPUSH SCH (09:20)
[2020-10-03] MEDS: levETIRAcetam 500 MG TABLET (FP) PO SCH ×2 (09:20→22:01)
[2020-10-03] MEDS: CARVEDILOL 25 MG TABLET (FP) PO SCH ×2 (09:21→22:02)
[2020-10-03] MEDS: amLODIPine BESYLATE 10 MG TABLET (FP) PO SCH (09:21)
[2020-10-03] MEDS: MEMANTINE HCL 5 MG TABLET (UD) PO SCH ×2 (09:21→22:02)
[2020-10-03] MEDS: CEFTRIAXONE 2 GM in DEXTROSE 5%-WATER 2 GM/100 ML BAG IVPB SCH (09:22)
[2020-10-03] MEDS: AZITHROMYCIN IVPB 500 MG/250 ML BAG IVPB SCH (09:26)
[2020-10-03] MEDS: DONEPEZIL HCL 5 MG TABLET (FP) PO SCH (22:02)
[2020-10-03] MEDS: MIRTAZAPINE 15 MG TABLET (FP) PO SCH (22:03)
[2020-10-04] MEDS ORDERED: DEXTROSE 5%-WATER 100 ML IVPB ONE (07:16)
[2020-10-04] MEDS: AZITHROMYCIN IVPB 500 MG/250 ML BAG IVPB SCH (09:29)
[2020-10-04] MEDS: CEFTRIAXONE 2 GM in DEXTROSE 5%-WATER 2 GM/100 ML BAG IVPB SCH (09:29)
[2020-10-04] MEDS: FUROSEMIDE 40 MG/4 ML INJECTABLE VIAL IVPUSH SCH (09:29)
[2020-10-04] MEDS: levETIRAcetam 500 MG TABLET (FP) PO SCH ×2 (09:29→21:42)
[2020-10-04] MEDS: MEMANTINE HCL 5 MG TABLET (UD) PO SCH ×2 (09:30→21:42)
[2020-10-04] MEDS: CARVEDILOL 25 MG TABLET (FP) PO SCH ×2 (09:30→21:44)
[2020-10-04] MEDS: amLODIPine BESYLATE 10 MG TABLET (FP) PO SCH (09:30)
[2020-10-04] MEDS: MIRTAZAPINE 15 MG TABLET (FP) PO SCH (21:42)
[2020-10-04] MEDS: DONEPEZIL HCL 5 MG TABLET (FP) PO SCH (21:44)
[2020-10-05] MEDS ORDERED: DEXTROSE 5%-WATER 100 ML IVPB ONE (08:00)
[2020-10-05] MEDS: BUDESONIDE 0.5 MG/2 ML INH SUSP VIAL NEB SCH ×2 (08:09→20:05)
[2020-10-05] MEDS: levETIRAcetam 500 MG TABLET (FP) PO SCH ×2 (09:29→21:43)
[2020-10-05] MEDS: MEMANTINE HCL 5 MG TABLET (UD) PO SCH ×3 (09:30→21:50)
[2020-10-05] MEDS: amLODIPine BESYLATE 10 MG TABLET (FP) PO SCH (09:30)
[2020-10-05] MEDS: CARVEDILOL 25 MG TABLET (FP) PO SCH ×2 (09:30→21:41)
[2020-10-05] MEDS: FUROSEMIDE 40 MG TABLET (FP) PO SCH (09:31)
[2020-10-05] MEDS: AZITHROMYCIN IVPB 500 MG/250 ML BAG IVPB SCH (09:32)
[2020-10-05] MEDS: CEFTRIAXONE 2 GM in DEXTROSE 5%-WATER 2 GM/100 ML BAG IVPB SCH (09:32)
[2020-10-05] MEDS: DONEPEZIL HCL 5 MG TABLET (FP) PO SCH ×2 (21:41→21:50)
[2020-10-05] MEDS: MIRTAZAPINE 15 MG TABLET (FP) PO SCH ×2 (21:43→21:46)
[2020-10-06] MEDS: BUDESONIDE 0.5 MG/2 ML INH SUSP VIAL NEB SCH (07:55)
[2020-10-06 08:04] LABS: BASO % 1.6 % (0-2.0); EOS % 1.8 % (0-4.5); HEMATOCRIT 40.6 % (35.4-49); HEMOGLOBIN 13.3 GM/dL (11.7-16.9); LYMPH % 19.6 % (8-40); MCH 32.3 pg (25.7-33.7); MCHC 32.7 g/dl (32.0-35.9); MEAN CELL VOLUME 98.7 fl (80-96); MEAN PLT VOLUME 14.4 fl (7.5-11.1); MONO % 13.3 % (3.8-10.2); NEUT % 63.7 % (42.8-82.8); RBC 4.11 M/mm3 (4.00-5.60); RDW 14.5 % (11.9-15.9); WHITE BLOOD COUNT 4.1 K/mm3 (4.0-10.0)
[2020-10-06 08:15] LABS: POTASSIUM 3.8 mmol/L (3.5-5.1)
[2020-10-06 08:22] LABS: ALBUMIN 2.7 g/dl (3.4-5.0); BLOOD UREA NITROGEN 18.5 mg/dL (7-18)
[2020-10-06 08:25] LABS: CREATININE 0.9 mg/dL (0.55-1.3)
[2020-10-06 08:26] LABS: BILIRUBIN,TOTAL 1.4 mg/dL (0.2-1); TOT PROT 6.3 g/dl (6.4-8.2)
[2020-10-06] MEDS ORDERED: DEXTROSE 5%-WATER 100 ML IVPB ONE (08:32)
[2020-10-06] MEDS: CEFTRIAXONE 2 GM in DEXTROSE 5%-WATER 2 GM/100 ML BAG IVPB SCH (09:40)
[2020-10-06] MEDS: levETIRAcetam 500 MG TABLET (FP) PO SCH (09:41)
[2020-10-06] MEDS: FUROSEMIDE 40 MG TABLET (FP) PO SCH (09:41)
[2020-10-06] MEDS: MEMANTINE HCL 5 MG TABLET (UD) PO SCH (09:41)
[2020-10-06] MEDS: amLODIPine BESYLATE 10 MG TABLET (FP) PO SCH (09:41)
[2020-10-06] MEDS: CARVEDILOL 25 MG TABLET (FP) PO SCH (09:41)
[2020-10-06 10:22] LABS: PLATELET COUNT 39 K/MM3 (134-434)
[2020-10-06] MEDS: AZITHROMYCIN IVPB 500 MG/250 ML BAG IVPB SCH (10:35)
[2020-10-06 12:33] LABS: INR 1.39 (0.83-1.09); PROTHROMBIN TIME (PATIENT) 16.7 SEC (9.7-13.0)
[2020-10-06 12:36] LABS: ACTIVATED PTT 38.2 SECONDS (25.2-36.5)
[2020-10-06 14:19] VITALS: BMI 29.6
[2020-10-06 14:54] VITALS: BP 117/76; PULSE 86; TEMP 98
== END 2020-10-06 15:27 | disposition home or self-care (01) | DRG 291 ==
LOC: JER 11:47 → JERBED 14:37 → J4W 23:17
PROVIDERS: ADMIT Internal Medicine; ATTEND Internal Medicine
DX: I11.0 Hypertensive heart disease with heart failure (principal); J18.9 Pneumonia, unspecified organism; G92 Toxic encephalopathy; I48.20 Chronic atrial fibrillation, unspecified; I47.1 Supraventricular tachycardia; I50.23 Acute on chronic systolic (congestive) heart failure; G40.909 Epilepsy, unspecified, not intractable, without status epilepticus; G30.9 Alzheimer's disease, unspecified; D69.6 Thrombocytopenia, unspecified; I71.4 Abdominal aortic aneurysm, without rupture; F02.80 Dementia in other diseases classified elsewhere, unspecified severity, without behavioral disturbance, psychotic disturbance, mood disturbance, and anxiety; E78.5 Hyperlipidemia, unspecified
CPT/HCPCS: 36415; 71045-TC-FY; 74177-TC; 80048; 80053; 80076; 81003; 82550; 82607; 82728; 83540; 83550; 83605; 83690; 83880; 84484; 85025; 85027; 85379; 85384; 85610; 85730; 86880; 87040; 87070; 87086; 87205; 87804; 87899; 88300-TC; 93005; 93010; 94640; 94761; 97116-GP; 97162-GP; 99285-25; C9803; J0131; Q9967; U0003